=== PATIENT | female | born 1930 | race Caucasian/White ===

== ENCOUNTER 2018-08-29 16:57 | Inpatient (IN) | payer OTHER, MEDICARE ==
[~2018-08-29] VITALS: Ht 152.4 cm; Wt 58.6 kg
--- NOTE | ~2018-08-29 | HC ---
[facility] [place] [address] CONSULTATION Name: RAHEEL DAIGLE Kenya Room #: 226-P [facility] IN .R.#: [id number] Admission: 08/29/18 Attend Phys: Richmond De Anda MD Discharge: 09/01/18 Date of : [birth year] Report #: [id number] THIS REPORT FOR: //name// CC: Richmond VERAS REASON FOR CONSULTATION: End-stage renal disease. HISTORY OF PRESENT ILLNESS: This is an 88-year-old who had some issues with left hip pain that started on Thursday. She was unable to manage her pain and presented for the emergency room for further evaluation and management. She was in a sitting position and tried to stand up and had a little twist on her left lower extremity. Pivoting on her left foot and felt a pop after that. She presented to the emergency room where she was found to have a broken left femur. She was admitted for further evaluation and management. No repeated falls. Last fall was about a year ago. She is completely asymptomatic otherwise. She is maintained on hemodialysis every Thursday, Thursday and Thursday. I am being consulted to manage her end-stage renal disease. ALLERGIES: ALLOPURINOL, HYDROCODONE, TRAMADOL, CAPTOPRIL. PAST MEDICAL HISTORY: 1. Status post lung surgery. 2. Colon resection. 3. End-stage renal disease with left AV fistula. 4. Status post aortic valve replacement. 5. Cataract surgery. 6. Remote history of peritoneal dialysis catheter insertion and removal. MEDICATIONS: 1. Diltiazem. 2. Ibuprofen. 3. Sensipar. 4. Renvela. 5. Aspirin. 6. Heparin. REVIEW OF SYSTEMS: GENERAL: No fever or chills. CARDIOVASCULAR: No chest pain, but significant dyspnea on exertion. PULMONARY: No cough or hemoptysis. GASTROINTESTINAL: No nausea or vomiting. GENITOURINARY: She is anuric. MUSCULOSKELETAL: As per the history of present illness. NEUROLOGICAL: No seizure activities. PHYSICAL EXAMINATION: [facility] [address] [place] [address] CONSULTATION Name: RAHEEL DAIGLE Room #: 226-[facility].#: [id number] Admission: 08/29/18 Attend Phys: Richmond De Anda MD Discharge: 09/01/18 Date of : [birth year] Report #: [id number] GENERAL: She is alert, oriented, in no apparent distress. VITAL SIGNS: Temperature 37.2, blood pressure 134/43. HEAD AND NECK: No jugular venous distention, no bruit, no thyromegaly. CHEST: Dilated chest vein kim, minimal crackles. CARDIOVASCULAR: Systolic murmur present over the aortic valve area. ABDOMEN: Soft, nontender. LOWER EXTREMITIES: Trace edema. Left lower extremity is externally rotated and tender around the hip area. LABORATORY DATA: Reviewed. Hemoglobin 9.3, platelets 77. Chemistry from today revealed potassium of 6.1, BUN of 60 and creatinine of 6.9. Proximal hip x-ray reviewed and this was consistent with a fracture. ASSESSMENT, IMPRESSION AND PLAN: 1. End-stage renal disease. 2. Left femur. 3. Aortic stenosis. 4. Hyperkalemia. We will arrange for the patient to have full dialysis treatment today. She is not okay to proceed with the planned orthopedic surgery today given her hyperkalemia. We will need cardiac clearance regarding her aortic stenosis. <ELECTRONICALLY SIGNED> By: Adan Costello MD 09/03/1820 39 Adan Costello MD /nt
--- NOTE | ~2018-08-29 | EKG ---
[address] [place] [address] ELECTROCARDIOGRAM REPORT Name: RAHEEL DAIGLE Room #: 420-P ADM IN M.R.#: [id number] Admission: 08/29/18 Attend Phys: Richmond De Anda MD Discharge: Date of : [birth year] Report #: [id number] THIS REPORT FOR: //name// [facility] ED Test Date: 2018-08-29 Test Time: 18:19:46 Pat Name: RAHEEL DAIGLE Department: Room: 420 Gender: F Performance Improvement Specialist: neil : 1930 Requested By: Jania Duncan Order Number: [id number] MD: Yogi Arevalo Measurements Intervals [place] Rate: 66 P: -31 MA: 219 QRS: 8 QRSD: 140 T: -18 QT: 446 QTc: 468 Interpretive Statements Sinus rhythm Atrial premature complex Borderline prolonged MA interval Right bundle branch block Compared to ECG 05/09/2013 14:29:47 Atrial premature complex(es) now present Electronically Signed On 08-30-2018 8:08:45 EDITOR NEWS by Yogi Arevalo [email or web address] <ELECTRONICALLY SIGNED> By: Yogi Arevalo MD, [facility] 08/30/18807 18 18 Yogi Arevalo MD, [facility] /EPI
--- NOTE | ~2018-08-29 | HC ---
[facility] [place] [address] CONSULTATION Name: RAHEEL DAIGLE Room #: 420-P [facility] IN ..#: [id number] Admission: 08/29/18 Attend Phys: Richmond De Anda MD Discharge: Date of : [birth year] Report #: [id number] THIS REPORT FOR: //name// CC: Richmond VERAS DATE OF SERVICE: 08/30/2018 HISTORY OF PRESENT ILLNESS: The patient is an 88-year-old white female with end-stage renal disease, dialysis patient who had the onset of left hip pain with inability to bear weight. She is noted to have a left proximal femur fracture. She is to be cleared by Cardiology and she is to have Orthopedics evaluate her regarding potential surgical intervention. We are seeing her in Rehabilitation Medicine consultation. PAST MEDICAL HISTORY: Includes end-stage renal disease for which she has been on hemodialysis. She has a history of lung removal in 1973, colon resection in 2010, heart valve replacement in 2011, degenerative arthritis. HABITS: No history of tobacco or alcohol abuse. ALLERGIES: ALLOPURINOL, CAPTOPRIL AND TRAMADOL WELL HYDROCODONE, FROM VICODIN CAUSING NAUSEA AND VOMITING. SOCIAL HISTORY: Lives with her , house 2 steps in. Premorbidly utilized a cane versus a walker. He would drive her back and forth to dialysis. REVIEW OF SYSTEMS: Did not offer any current complaints of chest pain, shortness of breath, or abdominal discomfort. PHYSICAL EXAMINATION: GENERAL: An 88-year-old slender white female, in no obvious distress. She is pleasant, alert. VITAL SIGNS: Last recorded temperature 99, pulse 71, respirations 16, blood pressure 1134/43. HEENT: Appeared to be benign. NEUROLOGIC: Cranial nerves grossly intact. Facies are symmetric. Functional range of motion of both upper extremities. Strength is grade 4- to 3+/5. DTRs are trace to 1. Lower extremities, she has discomfort moving her left proximal lower extremity as expected. Has distal movement of the left lower extremity with strength, probably a grade 4-/5, right lower extremity functional range of motion with strength, probably a grade 4-/5. Tone appeared to be intact. ASSESSMENT: An 88-year-old white female with the following problem list: 1. Left proximal femur fracture, being evaluated. 2. End-stage renal disease, on hemodialysis. [address] [address] CONSULTATION Name: RAHEEL DAIGLE [place] Room #: 420-P [facility] IN .R.#: [id number] Admission: 08/29/18 Attend Phys: Richmond De Anda MD Discharge: Date of : [birth year] Report #: [id number] 3. Prior history of heart valve replacement. 4. Documentation of lung removal in 1973. 5. Colon resection. 6. Diabetes mellitus. 7. Hypertension. PLAN: Orthopedics to evaluate. We will be assessing her rehabilitation needs as she further medically stabilizes. We will be glad to follow along with you. By: 1244 0045 Jaiden Aparicio MD /SHERLEY
--- NOTE | ~2018-08-29 | O ---
[address] [address] OPERATIVE REPORT Name: RAHEEL DAIGLE Room #: 420-P [facility] IN M.R.#: [id number] Admission: 08/29/18 Attend Phys: Richmond De Anda MD Discharge: Date of : [birth year]/14/[birth year] Report #: [id number] THIS REPORT FOR: //name// CC: Richmond VERAS DATE OF SERVICE: 08/30/2018 SERVICE: Orthopedics. FACILITY: [facility]. SURGEON: Damian Martin MD. ELECTRONIC REPAIR TROUBLESHOOTER: Heaven Hernandez NP. INDICATION FOR ELECTRONIC REPAIR TROUBLESHOOTER: Extremity position, assistance with dislocation, reduction and extremity management for the reconstruction. PREOPERATIVE DIAGNOSES: 1. Displaced left femoral neck fracture. 2. Multiple comorbidities including cardiac, pulmonary and renal disease with end-stage renal disease, on hemodialysis. 3. Osteoporosis. POSTOPERATIVE DIAGNOSES: 1. Displaced left femoral neck fracture. 2. Multiple comorbidities including cardiac, pulmonary and renal disease with end-stage renal disease, on hemodialysis. 3. Osteoporosis. PROCEDURE: Cemented left hip hemiarthroplasty. COMPLICATIONS: None. DRAINS: None. SPECIMENS: None. ESTIMATED BLOOD LOSS: 200 mL. FINDINGS: 1. [employer] size 13 Synergy cemented stem with +4 liner and a 42-mm cobalt head. 2. Intraoperative x-ray confirmed appropriate positioning of the trial implant and broach. [address] [address] OPERATIVE REPORT Name: RAHEEL DAIGLE Room #: 420-P [facility] IN [facility]#: [id number] Admission: 08/29/18 Attend Phys: Richmond De Anda MD Discharge: Date of : [birth year] Report #: [id number] HISTORY: The patient is an 88-year-old female with multiple medical issues who sustained a left hip fracture. She was admitted on 08/29/2018. Orthopedics was consulted the morning of 08/30/2018 for her left proximal femur fracture. Decision was made to proceed with surgical treatment after she had been optimized from a general medical standpoint after completing hemodialysis on Thursday. Risks, benefits, alternatives, and indication for surgery discussed with her and her family and their questions were answered and they gave full informed consent. The risks include but not limited to pain, bleeding, infection, injury to nerves or blood vessels, malunion, refracture, need for further surgery including revision as well as complications related to anesthesia such as stroke, heart attack, pulmonary complications, thromboembolic disease and . Despite these risks, they wished to proceed. PROCEDURE IN DETAIL: After left lower extremity was correctly identified in the preoperative holding area as operative extremity, the patient was taken to the operating room where general endotracheal anesthesia was induced without complication. She was turned into the lateral decubitus position with the left side at the right side up, padded appropriately and prophylactic antibiotics were administered at appropriate time. Left leg was prepped and draped in standard sterile fashion. Time-out procedure was performed. Standard posterior approach was made to the left hip. Incision was made. Dissection was taken down through the IT band and with a splitting approach, the gluteus musculature and the piriformis was identified, was tagged and reflected. The gluteus musculature was reflected off the dorsal side of the capsule and then, the capsule was then incised with a blade in a U-shaped fashion off of the femur. Hemostasis was achieved throughout the exposure. The labrum was protected during the capsular reflection. This was a basicervical femoral neck fracture that was low enough that no additional femoral cut was required. The femur was retracted out of the way and then, the femoral head and neck were removed in a bulk. The pulvinar was resected. The acetabulum was evaluated and found to be healthy in appearance. The femur was then prepared in a typical fashion. The entry reamer was utilized and then the lateralizing reamer and then, the canal was sequentially reamed and broached up to a size 13 with the [address] We brought x-ray and then confirmed appropriate alignment and positioning of the stem. There was noted to be an anterior cortical fracture that extended down about 2 cm. This was not circumferential. It was not a calcar fracture. It was one that was stable by splinting passed it and cementing the implant. The proximal femoral trial was placed and the hip was checked for length and stability in extension external rotation, position of sleep in the 90-90 internal rotation position. After selecting the final implant, the proximal femur was prepared and then, the final implant was cemented into position. It was held securely until the cement had cured and was [facility] [address] [place] [address] OPERATIVE REPORT Name: RAHEEL DAIGLE Room #: 420-P [facility] IN M.REmily#: [id number] Admission: 08/29/18 Attend Phys: Richmond De Anda MD Discharge: Date of : 02/14/[birth year] Report #: [id number] found to be quite stable. The trunnion was cleaned. The trial head and liner were again utilized to confirm that the appropriate sized implant had been selected and then, the 42-mm head was then impacted into position. The hip was reduced. The hip was again confirmed to be stable. Note that the acetabulum was thoroughly lavaged as was the trunnion prior to reduction of the hip. After reduction was performed, 0.5 gram of vancomycin powder was placed deep to the capsule. Then, the capsule was repaired to the posterior aspect of the femur with #2 FiberWire in a typical fashion. The piriformis was repaired as well. After the deep layer, the remaining 0.5 gram of vancomycin powder was placed over this and then, the IT band layer was closed with 0 Vicryl suture in [id number] interrupted fashion. The fat layer was closed with 0 Vicryl suture. Then, the skin was closed with 2-0 Vicryl followed by skin jason. A sterile dressing was applied. The patient was awakened from anesthesia and taken to the recovery room in stable condition. There were no complications. All counts were recorded as correct. <ELECTRONICALLY SIGNED> By: Damian Martin MD 08/31/18 1045 0724 0952 Damian Martin MD /nt
[~2018-08-29 16:57] MED LIST: ALEVE220 M1 PO; ALIGN4 MG PO; ARANESP 6060 MCG/0.1 SC; ASPIRIN EC81 M1 PO; BACTROBAN NASAL1 GM NASAL; CALCITRIOL0.5 MCG PO; CIPROFLOXACIN500 M3 PO; DILTIAZEM ER240 M1 PO; DOCUSATE SODIU100 MG PO; EPOGEN2000 UNIT/ SQ; FIBER0.52 GM PO; FISH OIL 1,001000 M1 PO; FOSRENOL500 MG PO; HECTOROL2 MCG/1 ML IV; HEPARIN SO1000 UNIT2; HYDROCODON-ACE1 EAC7 PO; IRON INFUSION IV; LIPITOR20 MG PO; MIRALAX255 GM PO; MULTIVITAMINS PO; NEURONTIN 300300 M1 PO; NORCO 5-325 TA1 EACH PO; PHISOHEX148 ML TOP; RENAL SOFTGEL1 MG; RENAL SOFTGEL1 MG PO; RENVELA800 MG PO; SENOKOT-S1 TA1 PO; SENSIPAR 30 MG30 M1 PO; STOOL SOFTENER240 MG PO; TOPROL XL25 MG PO; VANCOMYCIN1 GM/2502 IV; [UNRECOGNIZED DRUG - OTHER] PO; [UNRECOGNIZED DRUG - OTHER] PO
[2018-08-29 17:00] VITALS: BP 104/59
[2018-08-29] MEDS ORDERED: CARDIZEM CD120 MG PO (17:57)
[2018-08-29] MEDS ORDERED: IBUPROFEN 200200 M1 PO (17:57)
[2018-08-29] MEDS ORDERED: MELATONIN1 MG PO (17:58)
[2018-08-29] MEDS ORDERED: UNICOMPLEX M TA1 TA1 PO (17:59)
[2018-08-29] MEDS ORDERED: PROBIOTIC1 EAC1 PO (17:59)
[2018-08-29] MEDS ORDERED: MIRALAX17 GM PO (18:00)
[2018-08-29] MEDS ORDERED: CLARITIN10 MG PO (18:00)
[2018-08-29 18:35] VITALS: BP 90/57
[2018-08-29 18:37] VITALS: BP 90/57
[2018-08-29 18:42] LABS: HEMATOCRIT 32.3 % (37.0-47.0); HEMOGLOBIN 10.9 gm/dL (12.0-15.0); MCH 30.5 pg (26.0-34.0); MCHC 33.8 g/dL (28.0-37.0); MCV 90.2 fL (80.0-100.0); RBC 3.58 mil/uL (4.20-5.00); RDW 17.6 % (10.5-14.5); WBC 8.1 thou/uL (4.0-11.0)
[2018-08-29 18:45] LABS: CREATININE 6.2 mg/dL (0.6-1.0); POTASSIUM 5.5 mmol/L (3.5-5.1)
[2018-08-29 19:58] VITALS: BP 176/52
[2018-08-29 19:59] VITALS: BP 106/63
[2018-08-30] VITALS (7 sets, daily range): BP systolic 111–175; BP diastolic 43–63
[2018-08-30 06:05] LABS: HEMATOCRIT 27.2 % (37.0-47.0); HEMOGLOBIN 9.3 gm/dL (12.0-15.0); MCH 30.9 pg (26.0-34.0); MCHC 34.1 g/dL (28.0-37.0); MCV 90.6 fL (80.0-100.0); RDW 17.7 % (10.5-14.5); WBC 6.9 thou/uL (4.0-11.0)
[2018-08-30 06:14] LABS: CALCIUM 9.2 mg/dL (8.5-10.1); CREATININE 6.9 mg/dL (0.6-1.0)
[2018-08-30 06:30] LABS: POTASSIUM 6.1 mmol/L (3.5-5.1)
[2018-08-30 16:08] LABS: CALCIUM 9.4 mg/dL (8.5-10.1); CREATININE 2.5 mg/dL (0.6-1.0); MAGNESIUM 1.9 mg/dL (1.8-2.4); POTASSIUM 3.6 mmol/L (3.5-5.1)
[2018-08-31] VITALS (9 sets, daily range): BP systolic 99–126; BP diastolic 27–72
[2018-08-31 06:33] LABS: HEMATOCRIT 22.5 % (37.0-47.0); MCH 29.9 pg (26.0-34.0); MCHC 32.6 g/dL (28.0-37.0); MCV 91.8 fL (80.0-100.0); RBC 2.45 mil/uL (4.20-5.00); WBC 11.3 thou/uL (4.0-11.0)
[2018-08-31 06:35] LABS: HEMOGLOBIN 7.3 gm/dL (12.0-15.0)
[2018-08-31 06:40] LABS: CALCIUM 8.4 mg/dL (8.5-10.1)
[2018-08-31 06:42] LABS: CREATININE 3.7 mg/dL (0.6-1.0); POTASSIUM 4.9 mmol/L (3.5-5.1)
[2018-08-31 12:20] LABS: HEMATOCRIT 22.6 % (37.0-47.0); HEMOGLOBIN 7.5 gm/dL (12.0-15.0)
[2018-08-31 20:45] LABS: HEMATOCRIT 19.2 % (37.0-47.0); HEMOGLOBIN 6.4 gm/dL (12.0-15.0)
[2018-09-01 04:43] LABS: HEMATOCRIT 24.6 % (37.0-47.0); MCH 29.5 pg (26.0-34.0); MCHC 32.6 g/dL (28.0-37.0); MCV 90.7 fL (80.0-100.0); PLATELET COUNT 79 thou/uL (150-400); RBC 2.71 mil/uL (4.20-5.00); RDW 16.8 % (10.5-14.5); WBC 12.9 thou/uL (4.0-11.0)
[2018-09-01 04:58] LABS: CREATININE 5.3 mg/dL (0.6-1.0); POTASSIUM 5.8 mmol/L (3.5-5.1)
[2018-09-01 05:06] LABS: ABSOLUTE NEUTROPHILS 9.9 thou/uL (1.4-8.2)
[2018-09-01 05:07] LABS: ANISOCYTOSIS 1+; PLATELET ESTIMATE DECREASED; POLYCHROMASIA OCCASIONAL
[2018-09-01 08:33] VITALS: BP 90/37
[2018-09-01 13:13] VITALS: BP 100/41
[2018-09-01] MEDS ORDERED: TYLENOL325 MG PO (14:43)
[2018-09-01] MEDS ORDERED: HEPARIN SO5000 UNIT/ SUBQ (14:43)
[2018-09-01] MEDS ORDERED: PROCRIT20000 UNIT IV PUSH (14:43)
[2018-09-01] MEDS ORDERED: TYLENOL EXTRA500 MG PO (14:58)
[2018-09-01 20:00] VITALS: BP 105/29
== END 2018-09-01 21:45 | DRG 469 ==
LOC: ER 16:57 → EROBS 18:12 → 4E 18:12 → SICU 08-31 18:59
PROVIDERS: Emergency Medicine; Hospitalist; Nurse Practitioner Family; Orthopaedic Surgery Sports Medicine
PROC: 5A1D70Z Performance of Urinary Filtration, Intermittent, Less than 6 Hours Per Day (ICD-10-PCS; principal; 2018-08-30)
PROC: 30233N1 Transfusion of Nonautologous Red Blood Cells into Peripheral Vein, Percutaneous Approach (ICD-10-PCS; 2018-08-31)
PROC: 0SRS0J9 Replacement of Left Hip Joint, Femoral Surface with Synthetic Substitute, Cemented, Open Approach (ICD-10-PCS; 2018-08-31)
PROC: 5A1D70Z Performance of Urinary Filtration, Intermittent, Less than 6 Hours Per Day (ICD-10-PCS; 2018-09-01)
DX: S72.002A Fracture of unspecified part of neck of left femur, initial encounter for closed fracture (principal); N18.6 End stage renal disease; I12.0 Hypertensive chronic kidney disease with stage 5 chronic kidney disease or end stage renal disease; I35.0 Nonrheumatic aortic (valve) stenosis; E87.5 Hyperkalemia; E11.22 Type 2 diabetes mellitus with diabetic chronic kidney disease; M62.84 Sarcopenia; E21.3 Hyperparathyroidism, unspecified; I25.10 Atherosclerotic heart disease of native coronary artery without angina pectoris; E78.5 Hyperlipidemia, unspecified; G47.33 Obstructive sleep apnea (adult) (pediatric); E11.42 Type 2 diabetes mellitus with diabetic polyneuropathy; D64.9 Anemia, unspecified; K59.03 Drug induced constipation; X50.1XXA Overexertion from prolonged static or awkward postures, initial encounter; T40.605A Adverse effect of unspecified narcotics, initial encounter; M19.90 Unspecified osteoarthritis, unspecified site; Y93.89 Activity, other specified; Y92.89 Other specified places as the place of occurrence of the external cause; Z85.038 Personal history of other malignant neoplasm of large intestine; Z95.1 Presence of aortocoronary bypass graft; Y99.8 Other external cause status; Z95.2 Presence of prosthetic heart valve; Z99.2 Dependence on renal dialysis; Z79.82 Long term (current) use of aspirin; Z79.899 Other long term (current) drug therapy; Z88.8 Allergy status to other drugs, medicaments and biological substances; Z28.21 Immunization not carried out because of patient refusal
CPT/HCPCS: 10084; 15000; 32100; 50010; 50101; 50149; 50382; 50414; 50939; 51057; 51130; 51225; 51226; 51412; 51771; 53078; 53369; 56524; 56528; 56530; 57095; 57103; 62110; 62900; 70005

== ENCOUNTER 2018-09-01 11:09 | Inpatient (IN) | payer OTHER, MEDICARE ==
[~2018-09-01] VITALS: Ht 152.4 cm; Wt 60.1 kg
--- NOTE | ~2018-09-01 | PLAN ---
[facility] [place] [address] REHAB UNIT PLAN OF CARE Name: RAHEEL DAIGLE Room #: 510-P ADM IN M.R.#: [id number] Admission: 09/01/18 Attend Phys: Jaiden Aparicio MD Discharge: Date of : [birth year]/14/[birth year] Report #: [id number] THIS REPORT FOR: //name// CC: Jaiden PAZNE EDA DATE OF SERVICE: 09/03/2018 PROGRESS NOTE/OVERALL PLAN OF CARE SUBJECTIVE: The patient is seen back today in followup. She is in no distress. Last recorded temperature 99.1, pulse 77, respirations 18, blood pressure 117/52. Left hip is dressed. There is no calf swelling. Transfers are max assist. Gait mod assist up to 5 feet in parallel bars. Lower body dressing has been dependent. She is on subcutaneous heparin as well as receiving aspirin. ASSESSMENT: 1. Left femur fracture, status post hemiarthroplasty 08/30/2018, weightbearing as tolerated. 2. Postoperative acute blood loss anemia. 3. Postoperative hypotension. 4. End-stage renal disease, on hemodialysis. 5. Aortic stenosis with history of valve replacement. 6. Hyperkalemia, resolved. 7. Peripheral neuropathy, premorbid 8. Sarcopenia. 9. Hyperparathyroidism. PLAN: The overall plan of care is based on the preadmission screen, post-admission physician evaluation, and information garnered from therapy assessments. 1. Estimated length of stay is going to be probably at least 10 days to 2 weeks. 2. Medical prognosis is reasonably good. 3. Anticipated interventions include the interdisciplinary acute inpatient rehabilitation program with PT and OT. Speech therapy has been added as well and rehab nursing assisting regarding bowel and bladder issues, medication management, skin care prophylaxis and education. We have the healthcare network pricing consultant physicians involved as well as the interdisciplinary acute inpatient rehabilitation team. 4. Anticipated functional outcomes would be for the patient to become modified independent with transfers, mobility, ADLs, and improvement in cognition, so that she can return back to the home setting. 5. Discharge destination would be back home where she lives with her . 6. Expected therapy by discipline includes PT, OT, and speech with PT and OT 1 to 1-1/2 hours per day and speech 1/2 to 1 hour per day each 5 days a week [address] [address] REHAB UNIT PLAN OF CARE Name: RAHEEL DAIGLE [place] Room #: 510-P [facility] IN .R.#: [id number] Admission: 09/01/18 Attend Phys: Jaiden Aparicio MD Discharge: Date of : 02/14/[birth year] Report #: [id number] throughout the duration of the acute inpatient rehabilitation stay. She is on a low endurance program with her dialysis, so we may spread out the therapies over the 7 days. <ELECTRONICALLY SIGNED> By: Jaiden Aparicio MD 09/17/18 1415 0754 0902 Jaiden Aparicio MD /nt
--- NOTE | ~2018-09-01 | H ---
[facility] [place] [address] HISTORY AND PHYSICAL Name: RAHEEL DAIGLE Room #: 510-P [facility] IN .R.#: [id number] Admission: 09/01/18 Attend Phys: Jaiden Aparicio MD Discharge: Date of : [birth year]/14/[birth year] Report #: [id number] THIS REPORT FOR: //name// CC: Jaiden VERAS DATE OF SERVICE: 09/01/2018 HISTORY OF PRESENT ILLNESS: This is an 88-year-old female who was admitted in the hospital with acute onset of left hip pain, diagnosed with a left proximal femur fracture. She was cleared by Cardiology and underwent a cemented left hip hemiarthroplasty on 08/30/2018. She is weightbearing as tolerated. She does have end-stage renal disease and is on dialysis. She had some postop anemia requiring blood transfusion. She had some postop hypotension requiring further IV fluids. She has also had difficulty with pain control and nausea. Due to these factors and her decline in functional mobility, she has been admitted to the acute inpatient rehabilitation unit for physical and occupational therapies. Today, the patient reports continued pain in her left hip. She is very fatigued. She did not sleep well. She has nausea. She has been taking her pain pills, which worsened her nausea. She did eat a good breakfast. She had a bowel movement last night. She does not make urine. She denies any cough, chest pain or shortness of air. PAST MEDICAL HISTORY: End-stage renal disease, on hemodialysis; history of lung removal in 1973; colon resection in 2010; aortic valve replacement in 2011; degenerative joint disease; hypertension; hyperlipidemia; obstructive sleep apnea; spinal stenosis. HABITS: She is a nonsmoker, nondrinker, no illicit drug use. SOCIAL HISTORY: She lives with her . There are 2 steps to enter the house. Premorbidly utilized a cane for shorter distances and a walker for longer community distances. Her does the driving. She was independent with ADLs. They share the IADL responsibilities. She does have a daughter who is involved. She comes over and does housekeeping for them as well. ALLERGIES: SHE HAS ALLERGIES TO ALLOPURINOL, CAPTOPRIL, TRAMADOL, SENSITIVITY TO HYDROCODONE CAUSING NAUSEA. CURRENT MEDICATIONS: Procrit 6000 units Thursday, Thursday, Thursday IV; Metamucil 12 grams at bedtime; MiraLax 17 grams b.i.d.; Zofran 4 mg dissolved under tongue daily; Tylenol 1000 mg twice a day; Renvela 1600 mg t.i.d.; multivitamin 1 tablet daily; Claritin 10 mg daily; lactobacillus 1 capsule daily; Colace 300 mg daily; fish oil 1000 mg daily; aspirin 81 mg daily; Sensipar 30 mg daily; heparin 5000 units t.i.d.; hydrocodone 1 tablet q.4h. p.r.n.; melatonin 3 mg at bedtime p.r.n.; Tylenol 650 mg q.4h. p.r.n.; senna 8.[address] [address] HISTORY AND PHYSICAL Name: RAHEEL DAIGLE Room #: 510-P [facility] IN .Emily#: [id number] Admission: 09/01/18 Attend Phys: Jaiden Aparicio MD Discharge: Date of : 02/14/[birth year] Report #: [id number] REVIEW OF SYSTEMS: Twelve-point review of systems is negative except as listed in HPI. PHYSICAL EXAMINATION: VITAL SIGNS: Blood pressure 102/41, respirations 15, pulse of 73, temperature 97.7. She is 93% oxygen sat on room air. GENERAL: She is awake, alert. She is oriented x 3. She is forgetful. She is a poor historian. HEENT: Head is normocephalic. Eyes: EOMs are intact. No icterus. ENT: No sinus tenderness. CHEST: Lungs are diminished in the bases. A few inspiratory wheezes. No significant crackles. CARDIAC: She has a murmur. S1 and S2 intact. SKIN: She has multiple bruising to bilateral upper extremities. Very thin, frail skin upper and lower extremities. She has the original left hip postop dressing that has been reinforced due to some drainage. EXTREMITIES: She has functional range of motion in bilateral upper extremities. Strength grossly 3/5. She has no clonus. She has weak decorating instructor strength bilateral lower extremities. She has negative Homans sign. No foot drop. Able to lift right lower extremity and to gravity. Left lower extremity very limited due to pain complaints. She is transferring max assist, multiple attempts to use front wheel walker. She requires cues for hand placement and safety, very fearful of bearing weight on the left lower extremity. She was unable to ambulate. She was dependent, was scooting into her wheelchair, was able to maintain hip precautions. NEUROLOGIC: Cranial nerves 2-12 grossly intact. PSYCHIATRIC: Depressed affect. LABORATORY DATA: From 09/02/2018, sodium 138, potassium 4.2, BUN 26, creatinine 3.0, glucose 106, calcium 8.5. WBC is 12.3, hemoglobin 8.1, hematocrit 24.2, platelets 90. B12 787. ASSESSMENT: 1. Left femur fracture, status post hemiarthroplasty on 08/30/2018, weightbearing as tolerated. 2. Postoperative acute blood loss anemia anticipated. 3. Postoperative hypotension. 4. Nausea. 5. End-stage renal disease, on hemodialysis. 6. Aortic stenosis with history of valve replacement. 7. Hyperkalemia, resolved. 8. Peripheral neuropathy, premorbid. 9. Sarcopenia. 10. Hyperparathyroid. [facility] [place] [address] HISTORY AND PHYSICAL Name: RAHEEL DAIGLE Room #: 510-P ADM IN .R.#: [id number] Admission: 09/01/18 Attend Phys: Jaiden Aparicio MD Discharge: Date of : 02/14/[birth year] Report #: [id number] PLAN: The patient has been admitted to acute inpatient rehabilitation unit for physical and occupational therapies. She is on the low endurance protocol due to her hemodialysis. Her hospital consultants will continue to follow including Nephrology, hospitalist, Geriatrics. We will clarify with Orthopedics on dressing change orders. We will attempt to work on better pain control. She reports nausea with hydrocodone, but will not attempt to try basic Tylenol. We will see how she does. Plan for team conference on Thursday. Please see extensive orders. <ELECTRONICALLY SIGNED> By: SERGIO Silva 09/07/18 1504 1048 1305 SERGIO Silva /nt
--- NOTE | ~2018-09-01 | H ---
[facility] [place] [address] [place] [address] HISTORY AND PHYSICAL Name: RAHEEL DAIGLE Room #: 510-P [facility] IN .R.#: [id number] Admission: 09/01/18 Attend Phys: Jaiden Aparicio MD Discharge: Date of : [birth year]/14/[birth year] Report #: [id number] THIS REPORT FOR: //name// CC: Jaiden VERAS DATE OF SERVICE: 09/02/2018 POST-ADMISSION PHYSICIAN EVALUATION HISTORY OF PRESENT ILLNESS: The patient is an 88-year-old white female with end-stage renal disease, on hemodialysis, who had the onset of left hip pain with inability to bear weight. She was noted to have a left proximal femur fracture. She was cleared by Cardiology and underwent hemiarthroplasty by Dr. Martin on 08/30/2018. She is allowed weightbearing as tolerated. Postoperatively, she did have anemia with a hematocrit drop and needed to be transfused. She is on SCDs with aspirin for DVT prophylaxis. She also is now on subcutaneous heparin. The patient has been admitted for acute in-hospital inpatient rehabilitation. Please see the full admission history and physical from Margaret Gonzáles. This includes past medical history, social history, etc. Please see my prior consult dictation as well. MEDICATIONS: Please see the current medication listing. This includes vitamins, herbals, and supplements. REVIEW OF SYSTEMS: No complaints of chest pain, shortness of breath, or abdominal discomfort. She has pain as expected regarding the left hip. PHYSICAL EXAMINATION: GENERAL: She was in no distress. The patient was seen earlier. VITAL SIGNS: Temperature 97.7, pulse 73, respirations 15, blood pressure is 102/41. CHEST: Sounded clear. CARDIOVASCULAR: Regular rate and rhythm. ABDOMEN: Bowel sounds positive, nontender. EXTREMITIES: Left hip is dressed. No focal calf swelling or clinical evidence of a lower extremity deep venous thrombosis. She has been max assist with transfers. ASSESSMENT AND PLAN: Please see the full history and physical. From a post-admission physician evaluation perspective, there are no relevant changes since the preadmission screening. Please see the above review of prior and current medical and functional conditions and comorbidities. Please see the patient's previous and current functional status. As far as risk of [facility] [address] [place] [address] HISTORY AND PHYSICAL Name: RAHEEL DAIGLE Room #: 510-P ADM IN [facility].#: [id number] Admission: 09/01/18 Attend Phys: Jaiden Aparicio MD Discharge: Date of : 02/14/[birth year] Report #: [id number] complications, there are multiple medical comorbidities that are noted. The initial plan of care involves the interdisciplinary acute inpatient rehabilitation program with the goal of maximizing the patient's functional independence, so that the patient can return back to the home setting. Measurable functional goals would be for her to achieve independence at the walker level with functional mobility and ADLs. Prognosis is reasonably good with estimated length of stay probably at least 10 days to 2 weeks pending progress. Potential barriers would include the patient's multiple medical comorbidities and her decreased functional status. The patient meets diagnostic criteria for an acute in-hospital inpatient rehabilitation stay. She meets medical necessity criteria and we will have the outside sales consultant physicians involved. She does have the tolerance for therapies and has appropriate discharge goals back to the home setting. <ELECTRONICALLY SIGNED> By: Jaiden Aparicio MD 09/17/18 1414 1153 1216 Jaiden Aparicio MD /nt
--- NOTE | ~2018-09-01 | HC ---
[facility] [place] [address] CONSULTATION Name: RAHEEL DAIGLE Room #: 510-P [facility] IN .R.#: [id number] Admission: 09/01/18 Attend Phys: Jaiden Aparicio MD Discharge: Date of : 02/14/[birth year] Report #: [id number] THIS REPORT FOR: //name// CC: Jaiden Aparicio TERESE VERAS DATE OF SERVICE: 09/05/2018 NEUROBEHAVIORAL STATUS EXAM: ATTENDING PHYSICIAN: Jaiden Aparicio MD. SAP BPC ARCHITECT: William Cain, PhD. CLINICAL PRESENTATION: The patient is an 88-year-old female admitted to the rehab unit at [facility] for a comprehensive inpatient rehabilitation program to improve functional mobility, activities of daily living and self-care and mental status secondary to deficits from a hip fracture. The patient sustained a left proximal femur fracture. She underwent a cemented left hip hemiarthroplasty on 08/30/2018 and is weightbearing as tolerated. The patient carries diagnoses that include end-stage renal disease and is on dialysis. She had postop period of anemia and required IV fluids as well to treat postop hypotension. PAST MEDICAL HISTORY: End-stage renal disease, history of lung removal in 1973, colon resection in 2010, aortic valve replacement in 2011, degenerative joint disease, hypertension, hyperlipidemia, obstructive sleep apnea and spinal canal stenosis. A complete description of her medical condition and history along with medications can be found in her medical records. Neuropsychological consultation was requested to provide assistance in the assessment of cognitive and emotional status and to provide recommendations and services. Prior to this most recent medical event, she was living independently in her own home. She reported being independent with all instrumental activities of daily living. and assisting her 90-year-old . The patient is a high school graduate. 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 Her daughter is concerned about her ability to return home to the prior arrangement because of the amount of help that she is likely require. TECHNIQUES UTILIZED: Clinical interview, review of medical records, staff consultation and behavioral observation, mini mental status exam 2 standard version and clock drawing and then, family interview -- daughter. EXAMINATION FINDINGS: The patient was alert and cooperative with the [address] [address] CONSULTATION Name: RAHEEL DAIGLE Room #: 510-P [facility] IN .R.#: [id number] Admission: 09/01/18 Attend Phys: Jaiden Aparicio MD Discharge: Date of : 02/14/30 Report #: [id number] assessment. She accurately described the reason for her hospitalization. There is no evidence of aphasia. Her thoughts are logical and goal oriented. There is no evidence of thought disorder. She does not report auditory or visual hallucinations. The patient appeared to be in much pain. She was fidgety and restless during the assessment with obvious difficulty in finding a comfortable position. Her symptoms also include longstanding difficulty with sleep and decreased appetite. Periods of confusion and disorientation are noted secondary to a narcotic medication. Subjective anxiety and depression are elevated. Her performance on the MMSE 2 brief version was in the mild to moderate range of impairment with a raw score of 12 of 16, which is a T score of 31, percentile rank of 3. She was 3 of 3 for initial registration, 4 of 5 for orientation to time, 5 of [address] and 0 of 3 for immediate recall of 3 items after a brief time delay and distraction. Performance on the MMSE 2 standard version was in the moderate range of impairment with a raw score of 21 and a T score of 29, which is at the second percentile. She was 1 of 5 for serial sevens, 2 of 2 for naming, 1 of 1 for repetition. Auditory comprehension was 3 of 3, she could read and follow single command and write a sentence. The patient had difficulty with copying a simple geometric design. Clock drawing was within normal limits. The patient appears in moderate to severe pain making it more difficult to concentrate on tasks. Additionally, narcotics are described as having had an impact on her level of orientation. This type of presentation suggests a mild cognitive disorder that is likely related to medical etiology and possibly aggravated by current use of pain medicine and severe pain. Anxiety and depression are also noted. DIAGNOSTIC IMPRESSION: Mild neurocognitive disorder, due to medical etiology, without behavior disorder. Unspecified anxiety disorder with depression. RECOMMENDATIONS: I reviewed with her and her daughter a relaxation technique to assist with pain management. Continued encouragement to utilize breathing strategies and distraction along with paceing to assist with pain management. Use of an antidepressant medication to assist in mood and behavior. Remeron may be of benefit at night for sleep as well as assist in stimulation of appetite. Psychiatric consultation may be a benefit to assist in selection of [address] [address] CONSULTATION Name: RAHEEL DAIGLE Room #: 510-P [facility] IN M.R.#: [id number] Admission: 09/01/18 Attend Phys: Jaiden Aparicio MD Discharge: Date of : 02/14/[birth year] Report #: [id number] an antidepressant. The patient will require assistance in medical, financial and nutritional management upon her discharge home. An assisted living environment or at least availability of family to remain in her house will likely be necessary to for her to maintain safety. Thank you very much for allowing me to provide the consultation on this patient. <ELECTRONICALLY SIGNED> By: William Cain, PhD 09/12/18 1851 1329 01 William Cain, PhD /nt
[~2018-09-01 11:09] MED LIST changes: +CARDIZEM CD120 MG PO; +CLARITIN10 MG PO; +IBUPROFEN 200200 M1 PO; +MELATONIN1 MG PO; +MIRALAX17 GM PO; +PROBIOTIC1 EAC1 PO; +UNICOMPLEX M TA1 TA1 PO
[2018-09-01] MEDS ORDERED: PROCRIT20000 UNIT IV PUSH (14:43)
[2018-09-01] MEDS ORDERED: TYLENOL325 MG PO (14:43)
[2018-09-01] MEDS ORDERED: HEPARIN SO5000 UNIT/ SUBQ (14:43)
[2018-09-01] MEDS ORDERED: TYLENOL EXTRA500 MG PO (14:58)
[2018-09-01 23:35] VITALS: BP 104/36
[2018-09-02 06:27] LABS: HEMATOCRIT 24.2 % (37.0-47.0); HEMOGLOBIN 8.1 gm/dL (12.0-15.0); MCH 30.1 pg (26.0-34.0); MCHC 33.5 g/dL (28.0-37.0); MCV 89.8 fL (80.0-100.0); RBC 2.7 mil/uL (4.20-5.00); RDW 16.9 % (10.5-14.5); WBC 12.3 thou/uL (4.0-11.0)
[2018-09-02 06:35] LABS: CALCIUM 8.5 mg/dL (8.5-10.1); POTASSIUM 4.2 mmol/L (3.5-5.1)
[2018-09-02 09:35] VITALS: BP 102/41
[2018-09-02 20:07] VITALS: BP 104/39
[2018-09-02 21:43] VITALS: BP 117/52
[2018-09-03 08:00] VITALS: BP 143/41
[2018-09-03 19:34] VITALS: BP 125/48
[2018-09-04 05:48] LABS: HEMOGLOBIN 6.8 gm/dL (12.0-15.0); MCH 30.6 pg (26.0-34.0); MCHC 34.2 g/dL (28.0-37.0); MCV 89.5 fL (80.0-100.0); PLATELET COUNT 117 thou/uL (150-400); RBC 2.23 mil/uL (4.20-5.00); RDW 17.4 % (10.5-14.5); WBC 8.1 thou/uL (4.0-11.0)
[2018-09-04 05:55] LABS: CALCIUM 7.7 mg/dL (8.5-10.1); POTASSIUM 4.9 mmol/L (3.5-5.1)
[2018-09-04 06:00] LABS: CREATININE 5.3 mg/dL (0.6-1.0)
[2018-09-04 07:08] VITALS: BP 135/44
[2018-09-04 09:13] LABS: ABSOLUTE NEUTROPHILS 5.2 thou/uL (1.4-8.2)
[2018-09-04 09:14] LABS: ANISOCYTOSIS 1+; LARGE PLATELETS SEVERAL
[2018-09-04 12:43] VITALS: BP 120/42; BP 124/49
[2018-09-04 19:35] VITALS: BP 130/46
[2018-09-05 05:58] LABS: HEMATOCRIT 24.9 % (37.0-47.0); HEMOGLOBIN 8.5 gm/dL (12.0-15.0); MCH 30.6 pg (26.0-34.0); MCHC 34.1 g/dL (28.0-37.0); MCV 89.6 fL (80.0-100.0); PLATELET COUNT 125 thou/uL (150-400); RBC 2.78 mil/uL (4.20-5.00); RDW 16.6 % (10.5-14.5); WBC 6.8 thou/uL (4.0-11.0)
[2018-09-05 06:09] LABS: CALCIUM 8.3 mg/dL (8.5-10.1); POTASSIUM 4.1 mmol/L (3.5-5.1)
[2018-09-05 06:10] LABS: CREATININE 3.2 mg/dL (0.6-1.0)
[2018-09-05 08:00] VITALS: BP 140/51
[2018-09-05 09:03] LABS: ABSOLUTE NEUTROPHILS 4.3 thou/uL (1.4-8.2)
[2018-09-05 09:04] LABS: ANISOCYTOSIS 1+; HYPOCHROMASIA SLIGHT; OVALOCYTES FEW; POIKILOCYTOSIS 1+; POLYCHROMASIA SLIGHT
[2018-09-05 09:05] LABS: LARGE PLATELETS FEW
[2018-09-05 19:21] VITALS: BP 142/45
[2018-09-06 07:25] VITALS: BP 126/36
[2018-09-06 19:10] VITALS: BP 167/55
[2018-09-07 08:03] VITALS: BP 166/65
[2018-09-07 19:35] VITALS: BP 125/42
[2018-09-08 08:30] VITALS: BP 131/48
[2018-09-08 20:01] VITALS: BP 132/55
[2018-09-09 18:05] VITALS: BP 118/30
[2018-09-09 19:26] VITALS: BP 152/44
[2018-09-10 05:46] LABS: HEMOGLOBIN 7.8 gm/dL (12.0-15.0); MCH 30.2 pg (26.0-34.0); MCHC 32.4 g/dL (28.0-37.0); MCV 93.2 fL (80.0-100.0); RBC 2.57 mil/uL (4.20-5.00); RDW 17.2 % (10.5-14.5); WBC 7.7 thou/uL (4.0-11.0)
[2018-09-10 09:00] VITALS: BP 135/55
[2018-09-10 20:03] VITALS: BP 132/89
[2018-09-11 08:06] VITALS: BP 145/48
[2018-09-11 19:21] VITALS: BP 110/44
[2018-09-12 07:35] VITALS: BP 146/40
[2018-09-12 21:46] VITALS: BP 150/94
[2018-09-13 07:43] VITALS: BP 99/41
[2018-09-13 20:35] VITALS: BP 152/49
[2018-09-14 18:56] VITALS: BP 148/50
[2018-09-14 20:54] VITALS: BP 107/51
[2018-09-15 08:00] VITALS: BP 169/62
[2018-09-15 19:41] VITALS: BP 157/63
[2018-09-16 08:48] VITALS: BP 151/59
[2018-09-16 19:10] VITALS: BP 146/39
[2018-09-17 05:49] LABS: HEMATOCRIT 24.1 % (37.0-47.0); HEMOGLOBIN 7.8 gm/dL (12.0-15.0); MCHC 32.5 g/dL (28.0-37.0); MCV 95.2 fL (80.0-100.0); PLATELET COUNT 154 thou/uL (150-400); RBC 2.53 mil/uL (4.20-5.00); RDW 20.7 % (10.5-14.5)
[2018-09-17 06:00] LABS: CALCIUM 9.2 mg/dL (8.5-10.1); MAGNESIUM 2.1 mg/dL (1.8-2.4); POTASSIUM 4.8 mmol/L (3.5-5.1)
[2018-09-17 06:33] LABS: ABSOLUTE NEUTROPHILS 2.9 thou/uL (1.4-8.2); PLATELET ESTIMATE NORMAL
[2018-09-17 06:34] LABS: ANISOCYTOSIS 2+; POLYCHROMASIA OCCASIONAL
[2018-09-17 10:16] VITALS: BP 147/57
[2018-09-17 19:05] VITALS: BP 132/47
[2018-09-18 08:04] VITALS: BP 154/110
[2018-09-18 19:35] VITALS: BP 117/36
[2018-09-19 08:03] VITALS: BP 134/48
[2018-09-19 19:23] VITALS: BP 143/50
[2018-09-20 20:53] VITALS: BP 150/49
[2018-09-21 09:43] VITALS: BP 156/67
[2018-09-21 20:00] VITALS: BP 138/49
[2018-09-22] MEDS ORDERED: NORCO 7.5-3251 EACH PO (08:00)
[2018-09-22] MEDS ORDERED: ZANAFLEX4 MG PO (08:01)
[2018-09-22] MEDS ORDERED: LIDOPATCH1 EACH TRANSDERM (08:01)
[2018-09-22] MEDS ORDERED: PROTONIX 20 MG20 M1 PO (08:01)
[2018-09-22 09:29] VITALS: BP 156/52
[2018-09-22] MEDS ORDERED: MELATONIN1 MG PO (10:25)
[2018-09-22] MEDS ORDERED: SENSIPAR 30 MG30 M1 PO (10:25)
[2018-09-22] MEDS ORDERED: VOLTAREN100 GM TOP (10:25)
[2018-09-22] MEDS ORDERED: ALIGN4 MG PO (10:25)
[2018-09-22] MEDS ORDERED: PROCRIT20000 UNIT IV PUSH (10:25)
[2018-09-22] MEDS ORDERED: FISH OIL 1,0001 EAC1 PO (10:25)
[2018-09-22] MEDS ORDERED: FIBER0.52 GM PO (10:25)
[2018-09-22] MEDS ORDERED: DOCUSATE SODIU100 MG PO (10:25)
[2018-09-22] MEDS ORDERED: NEURONTIN 300300 M1 PO (10:25)
[2018-09-22] MEDS ORDERED: CLARITIN10 MG PO (10:25)
[2018-09-22] MEDS ORDERED: PROBIOTIC1 EAC1 PO (10:25)
[2018-09-22] MEDS ORDERED: MIRALAX17 GM PO (10:25)
[2018-09-22] MEDS ORDERED: RENVELA800 MG PO (10:25)
[2018-09-22] MEDS ORDERED: UNICOMPLEX M TA1 TA1 PO (10:25)
[2018-09-22 10:50] VITALS: BP 156/52
== END 2018-09-22 12:51 | disposition home health service (06) | DRG 535 ==
LOC: ENTRNSPT 09-22 12:45 → EDTRNSPTSTS 09-22 12:48
PROVIDERS: Hospitalist; Nurse Practitioner; Nurse Practitioner Family; Physical Medicine & Rehabilitation
PROC: 5A1D70Z Performance of Urinary Filtration, Intermittent, Less than 6 Hours Per Day (ICD-10-PCS; principal; 2018-09-04)
PROC: 5A1D70Z Performance of Urinary Filtration, Intermittent, Less than 6 Hours Per Day (ICD-10-PCS; 2018-09-07)
PROC: 5A1D70Z Performance of Urinary Filtration, Intermittent, Less than 6 Hours Per Day (ICD-10-PCS; 2018-09-08)
PROC: 5A1D70Z Performance of Urinary Filtration, Intermittent, Less than 6 Hours Per Day (ICD-10-PCS; 2018-09-11)
PROC: 5A1D70Z Performance of Urinary Filtration, Intermittent, Less than 6 Hours Per Day (ICD-10-PCS; 2018-09-16)
PROC: 5A1D70Z Performance of Urinary Filtration, Intermittent, Less than 6 Hours Per Day (ICD-10-PCS; 2018-09-18)
PROC: 5A1D70Z Performance of Urinary Filtration, Intermittent, Less than 6 Hours Per Day (ICD-10-PCS; 2018-09-21)
DX: S72.002A Fracture of unspecified part of neck of left femur, initial encounter for closed fracture (principal); N18.6 End stage renal disease; D62 Acute posthemorrhagic anemia; I12.0 Hypertensive chronic kidney disease with stage 5 chronic kidney disease or end stage renal disease; X58.XXXA Exposure to other specified factors, initial encounter; E87.5 Hyperkalemia; D69.6 Thrombocytopenia, unspecified; I35.0 Nonrheumatic aortic (valve) stenosis; Y93.89 Activity, other specified; Y92.89 Other specified places as the place of occurrence of the external cause; Y99.8 Other external cause status; Z99.2 Dependence on renal dialysis; I95.81 Postprocedural hypotension; Z95.2 Presence of prosthetic heart valve; G62.9 Polyneuropathy, unspecified; M62.84 Sarcopenia; E21.3 Hyperparathyroidism, unspecified; G31.84 Mild cognitive impairment of uncertain or unknown etiology; F41.8 Other specified anxiety disorders; Z90.49 Acquired absence of other specified parts of digestive tract; M19.90 Unspecified osteoarthritis, unspecified site; G47.33 Obstructive sleep apnea (adult) (pediatric); Z88.8 Allergy status to other drugs, medicaments and biological substances; R11.0 Nausea; R53.81 Other malaise; D64.9 Anemia, unspecified; K59.00 Constipation, unspecified; M62.838 Other muscle spasm
CPT/HCPCS: 10112; 32100

== ENCOUNTER 2018-12-03 07:29 | Inpatient (IN) | payer OTHER, MEDICARE ==
[~2018-12-03] VITALS: Ht 154.9 cm; Wt 51.8 kg
--- NOTE | ~2018-12-03 | O ---
[facility] [place] [address] OPERATIVE REPORT Name: RAHEEL DAIGLE Room #: 429-P [facility] IN ..#: [id number] Admission: 12/03/18 ������������������ Attend Phys: Lucas Phillip MD Discharge: ������������������ Date of : 02/14/30 Report #: [id number] THIS REPORT FOR: //name// CC: Lucas Phillip FAM unknown TERESE VERAS DATE OF SERVICE: 12/04/2018 PREOPERATIVE DIAGNOSIS: Left femur fracture, periprosthetic, midshaft. POSTOPERATIVE DIAGNOSIS: Left femur fracture, periprosthetic, midshaft. PROCEDURE: Open reduction and internal fixation of left femur fracture. SURGEON: Omi Johnson M.D. SUPERVISOR WHIPPED TOPPING: Thelma Hicks. ANESTHESIA: General. ESTIMATED BLOOD LOSS: Minimal. DRAINS: No drains. TOURNIQUET TIME: None. DESCRIPTION OF PROCEDURE: The patient was brought to the operating room where she was placed under general anesthesia. Once under adequate general anesthesia, she was placed on the operative table. The patient's left lower extremity was then prepped and draped in a sterile manner. A longitudinal incision approximately 18 cm in length was made along the lateral aspect of the femur. This was dissected down through the soft tissue to the femoral fracture. Any hematoma was evacuated from the fracture site. The fracture was reduced with a large fragment femoral plate placed laterally. Subsequent fixation both proximal and distal to the fracture site once reduction was achieved, it was achieved with 5 screws distal to the fracture site and placed in locking mode and 4 screws proximal placed in locking mode along with a locking wire, a cable proximally as well. Excellent fixation was achieved. Once complete in satisfactory alignment, the wound was then irrigated copiously and closed with #1 Vicryl in deep fascia, 2-0 Vicryl in subcutaneous tissues and jason used for the skin. Fluoroscopy was used throughout the case to verify the position and alignment of the hardware and fracture to be satisfactory. Wounds were dressed with Xeroform, 4 x 4s, and sterile soft compressive dressing was placed. [address] [address] OPERATIVE REPORT Name: RAHEEL DAIGLE Room #: 429-P [facility] IN .R.#: [id number] Admission: 12/03/18 ������������������ Attend Phys: Lucas Phillip MD Discharge: ������������������ Date of : 02/14/30 Report #: [id number] There were no complications from the procedure. The patient tolerated the procedure well and went to the recovery room without incident. ��������������������������������������������� ���������������������������������������� By: ��������������������������������������������� 1630 1704 Omi Johnson MD /nt
[~2018-12-03 07:29] MED LIST changes: +FISH OIL 1,0001 EAC1 PO; +HEPARIN SO5000 UNIT/ SUBQ; +LIDOPATCH1 EACH TRANSDERM; +NORCO 7.5-3251 EACH PO; +PROCRIT20000 UNIT IV PUSH; +PROTONIX 20 MG20 M1 PO; +TYLENOL EXTRA500 MG PO; +TYLENOL325 MG PO; +VOLTAREN100 GM TOP; +ZANAFLEX4 MG PO
--- NOTE | 2018-12-03 12:53 | NUR ---
chart review, pt dir admit from [facility] in [facility]. pt was dc from acute 5n rehab in aug 2018, when dc she went to stay with her daughter up here, had [facility] hh and went to [facility] prior to going back home with her . noted cheryl on o2 per de. she a & o x 3, able to make her needs know. did not come up rt winter weather. cheryl and live in [place] and she goes to dialysis 3 x week in [facility] in [facility]. intro to cm and dcp. pt and daughter reported " did not fall, got my leg twisted under bed when trying to get into bed. have walker, and shower chair. no home o2 or hh at pt home, only had hh while recovering at her daughter in [place] after dc from acute 5n rehab. going to or"/cheryl, and daughter. will cont following as needed for dc needs.
[2018-12-03 12:54] LABS: HEMATOCRIT 21.2 % (37.0-47.0); HEMOGLOBIN 7.3 gm/dL (12.0-15.0); MCH 33.2 pg (26.0-34.0); MCHC 34.2 g/dL (28.0-37.0); MCV 96.9 fL (80.0-100.0); RBC 2.19 mil/uL (4.20-5.00); RDW 19.4 % (10.5-14.5); WBC 8.8 thou/uL (4.0-11.0)
[2018-12-03 13:03] LABS: CALCIUM 8.9 mg/dL (8.5-10.1); CREATININE 4.5 mg/dL (0.6-1.0); MAGNESIUM 2.2 mg/dL (1.8-2.4); POTASSIUM 4.4 mmol/L (3.5-5.1)
[2018-12-03 13:07] LABS: APTT 30.1 Seconds (24.5-32.8); INR 1.1; PROTIME 11.6 Seconds (9.3-11.4)
[2018-12-03 14:20] LABS: LARGE PLATELETS SEVERAL
[2018-12-03 14:21] LABS: PLATELET COUNT 129 thou/uL (150-400)
[2018-12-03 15:22] VITALS: BP 160/41
--- NOTE | 2018-12-03 16:48 | NUR ---
PT ARRIVED DIRECT FROM [facility]10 WITH A FEMUR FX. PT A/OX4, PAIN MANAGED WITH MEDICATIONS, SURGERY PLANS TOMORROW AFTERNOON WITH DR WILKINS. DIALYSIS TODAY. RENAL DIET AND NPO AT MIDNIGHT. FALL PRECAUTIONS IN PLACE. FAMILY BEDSIDE. ADMISSION ASSESMENT AND HISTORY COMPLETED. CALL LIGHT IN REACH.
[2018-12-03 20:00] VITALS: BP 140/49
[2018-12-04 04:00] VITALS: BP 136/38
[2018-12-04 05:18] LABS: HEMATOCRIT 21.1 % (37.0-47.0); HEMOGLOBIN 7.3 gm/dL (12.0-15.0); MCH 33.3 pg (26.0-34.0); MCHC 34.6 g/dL (28.0-37.0); MCV 96.2 fL (80.0-100.0); RBC 2.2 mil/uL (4.20-5.00); RDW 18.9 % (10.5-14.5); WBC 7.6 thou/uL (4.0-11.0)
[2018-12-04 05:26] LABS: ALBUMIN 3.1 g/dL (3.4-5.0); CALCIUM 8.9 mg/dL (8.5-10.1); POTASSIUM 3.9 mmol/L (3.5-5.1)
[2018-12-04 05:34] LABS: CREATININE 2.5 mg/dL (0.6-1.0)
[2018-12-04 07:43] VITALS: BP 133/46
[2018-12-04 11:20] VITALS: BP 165/98
--- NOTE | 2018-12-04 12:37 | NUR ---
ORDER REC'D FOR OT. PLANNED SURGERY TODAY FOR FEMUR FX. WILL AWAIT ORDERS AFTER SX.
--- NOTE | 2018-12-04 16:19 | NUR ---
A/OX4, PAIN MANAGED WITH MEDICATION, 2L NC DUE TO DESATURATION. BATH GIVE THIS MORNING FOR SURGERY. REPOSITIONED TOLERATED. DAUGHTER BEDSIDE. LEFT FOE PRE-OP AT 1300. PATIENT WILL TRANSFER TO [facility] POST-OP. REPORTED OFF TO NURSE RECIEVING PT. NOTIFIED POST-OP OF TRANSFER. FAMILY REMOVED PERSONAL BELONGINGS FROM ROOM.
[2018-12-04 17:22] LABS: HEMATOCRIT 24.1 % (37.0-47.0); HEMOGLOBIN 7.9 gm/dL (12.0-15.0)
[2018-12-04 17:55] VITALS: BP 128/46
--- NOTE | 2018-12-04 17:56 | NUR ---
PT ARRIVED FROM POST OP AT THIS TIME. PT ALERT XS 4 NO PAIN STATES JUST TIRED. V.S= 97.6 18 72 128/46 O2 SAT = 95% RA. ICE PACK TO LEFT LOWER EXTREMITY. FLUIDS STARTED ORDERED. PT TO HAVE CLEAR LIQUID DIET MENU IN ROOM.
[2018-12-04 19:44] VITALS: BP 115/34
--- NOTE | 2018-12-04 23:03 | NUR ---
ASSESSMENT COMPLETED. PT IS ALERT AND ORIENTED.PLEASANT. DENIES PAIN. LLE WITH IMMOBILIZER IN PLACE. DRSG C/D/I. ICE ARNALDO IN PLACE. GOOD SENSATION, MOVEMENT AND CIRCULTION NOTED TO LEFT FOOT/TOES.AFEBRILE. CALL LIGHT WITHIN REACH.
[2018-12-05] VITALS (7 sets, daily range): BP systolic 103–129; BP diastolic 19–98
[2018-12-05 05:31] LABS: HEMATOCRIT 18.5 % (37.0-47.0); HEMOGLOBIN 6.4 gm/dL (12.0-15.0)
[2018-12-05 05:34] LABS: POTASSIUM 5.1 mmol/L (3.5-5.1)
--- NOTE | 2018-12-05 08:27 | NUR ---
CRITICAL HGB 6.4 HCT 18.5, ORDERS RECEIVED TO TRANSFUSE 1 UNIT OF PRBC. STARTED AT 07:22. NO REACTION NOTED. REPORT GIVEN TO DAY SHIFT RN TO COMPLETE THE BLOOD TRANSFUSION.
--- NOTE | 2018-12-05 19:22 | NUR ---
ASSUMED PT CARE AT 0700H. PT A&O X4. PT STATES PAIN AT L HIP AND BACK PAIN. PT TOLERATES MEDS AND MEALS. PT HAD CRITICAL LAB FOURDRINIER WIRE WEAVER. PT INFUSING BLOOD AND VITALS TAKEN. PT LAB RESULTS CURRENLTY WAITING. PT HAD PHYSICAL THERAPY. PT STOOD AT BEDSIDE. PT HIP DRSG C/D/I. PT ON FLUID RESTRICTION 1000L. PT HAD NOT URINE OUTPUT. PT SCHEDULED TO HAVE DIALYSIS TOMORROW. PT CALLS APPROPRIATE. PT CONTINUES TO BE MONITORED FOR SAFETY.
[2018-12-05 19:31] LABS: HEMATOCRIT 21.2 % (37.0-47.0); HEMOGLOBIN 7.2 gm/dL (12.0-15.0)
[2018-12-06 05:35] VITALS: BP 130/38
--- NOTE | 2018-12-06 05:38 | NUR ---
required both IV and PO PRN pain medication for left leg/hip, chronic back pain. applied ice to incisional area, dressing intact. max assist for bed mobillity. turned q2hrs. left leg immobilizer in place. anuric. left upper arm dialysis fistula with bruit, thrill. will have dialysis today. received blood transfusion during previous shift, H&H redrawn, improved. can be anxious at times but responds well to emotional support. i am aware of no BM since admit per patient, last charted BM 12/01. tawny doss CHAPLAIN RESIDENT reviewed med list, resumed appropriate meds. takes Colace, Miralax, requests to be given after dialysis. no abdominal pain, bowel sounds WNL.
--- NOTE | 2018-12-06 08:54 | NUR ---
ASSUMED CARE OF PT AT 0700. ASSESSMENT COMPLETED. A&O,X4, FORGETFUL AT TIMES. C/O CHRONIC LOWER BACK PAIN AND LEFT LEG PAIN, PAIN MEDS GIVEN ORDERED AND PAIN PATCH IN PLACE LOWER BACK. LLL IMMOBILIZER IN PLACE. PULSES +2/+2, NEURO CHECKS INTACT. AM MEDS GIVEN ORDERED, SOME HELD DUE TO DIALYSIS THIS MORNING SEE EMAR. NO INSULIN REQURIED AT BREAKFAST. ROOM AIR, CLEAR LUNGS. MUMMUR NOTED. ACTIVE BOWEL SOUNDS, LBM 2/13. SKIN INTACT. FALL PRECAUTIONS IN PLACE. DAUGHTER AT BEDSIDE EARLIER THIS MORNING. PT IN STABLE CONDITION. WILL CONTINUE TO MONITOR.
[2018-12-06 09:11] VITALS: BP 112/28
--- NOTE | 2018-12-06 11:25 | HC ---
[facility] [place] [address] CONSULTATION Name: RAHEEL DAIGLE Room #: 429-P [facility] IN .R.#: [id number] Admission: 12/03/18 ������������������ Attend Phys: Lucas Phillip MD Discharge: ������������������ Date of : [birth year]/14/[birth year] Report #: [id number] THIS REPORT FOR: //name// CC: Lucas Phillip FAM unknown TERESE VERAS DATE OF SERVICE: 12/03/2018 NEPHROLOGY CONSULTATION REASON FOR CONSULTATION: End-stage renal disease, on dialysis. HISTORY OF PRESENT ILLNESS: The patient is extremely well known to our service with longstanding end-stage renal disease on dialysis, was hospitalized here with a left femur fracture in August 2018. She underwent extensive surgery with a partial hip replacement and was doing okay, back on her feet to some degree until this morning when she twisted getting into bed and she for re-fractured the femur below the prosthesis and has a femur fracture and is readmitted. Otherwise, she has been doing reasonably well. She is a bit weak, but not short-winded and is not having any chest pain. PAST MEDICAL HISTORY: Longstanding difficult hypertension, end-stage renal disease, on dialysis for several years. She had a colovesical fistula, which was repaired secondary to diverticulitis and a bovine aortic valve bioprosthesis and coronary bypass x 1 also several years ago. HOME MEDICATIONS: Include Renvela with meals, tramadol, diltiazem 120 mg daily. SOCIAL HISTORY: No cigarettes or alcohol. REVIEW OF SYSTEMS: GENERAL: She has been reasonably good. EYES: Vision is okay. ENT: Hearing okay, swallows okay. No mouth sores. ENDOCRINE: No diabetes. RESPIRATORY: Denies shortness of breath, pleuritic pain or cough. CARDIAC: No chest pain or angina. GASTROINTESTINAL: No nausea, vomiting, diarrhea or bloody stools. GENITOURINARY: Makes virtually no urine. NEUROLOGIC: Generalized weakness, but no seizure, syncope or stroke. FAMILY HISTORY: No renal disease. PHYSICAL EXAMINATION: GENERAL: This is a chronically ill appearing elderly dialysis patient, looking [facility] [address] [place] [address] CONSULTATION Name: RAHEEL DAIGLE [place] Room #: 429-P [facility] IN M.R.#: [id number] Admission: 12/03/18 ������������������ Attend Phys: Lucas Phillip MD Discharge: ������������������ Date of : [birth year]/14/[birth year] Report #: [id number] possibly older than her stated age of 88. She is awake, alert, giving a reasonably good history. SKIN: Unremarkable. SKELETAL: Well developed, well nourished. HEENT: Extraocular movements are full. Vision intact. Hearing intact. Mucous membranes are moist. Tongue, buccal mucosa benign. NECK: Supple, no carotid bruits. CHEST: Clear to auscultation. HEART: Regular with a 2/6 systolic murmur. ABDOMEN: Soft and nontender. EXTREMITIES: No peripheral edema. Peripheral pulses diminished. LABORATORY DATA: Hemoglobin according to this is only 6.0. Potassium 4, creatinine 4.1, BUN 48. ASSESSMENT AND PLAN: 1. End-stage renal disease, in need of dialysis. I will provide dialysis orders, etc. for this patient. 2. Anemia. She will need some blood transfusions before the surgery. 3. History of aortic valve replacement. 4. Longstanding hypertension. 5. Femur fracture. 6. Recent left hip hemiarthroplasty. ��������������������������������������������� <ELECTRONICALLY SIGNED> ���������������������������������������� By: Giorgio Holley MD ��������������������������������������������� 12/06/18 1125 [id number] Giorgio Holley MD /nt
--- NOTE | 2018-12-06 13:35 | NUR ---
PT LEFT FOR DIALYSIS IN STABLE CONDITION AT 13:30.
[2018-12-06 19:40] VITALS: BP 138/47
--- NOTE | 2018-12-06 19:55 | NUR ---
PT FINISHED DIAYLSIS AT APPROX 18:35 AND RETURNED TO ROOM. PT TEARFUL AND STATING SHE IS IN PAIN, PAIN MEDS GIVEN ORDERED. AT BEDSIDE. ZANDRA FISTULA IN C/D/I DRESSING. NO OTHER CHANGES.
--- NOTE | 2018-12-06 22:10 | NUR ---
ASSESSMENT COMPLETED. AT SHIFT CHANGE, PT WAS C/O BACK PAIN AND THEREAFTER R HAND PAIN. 2 HRS INTO GETTING IV FENTANYL, PT STILL IN EXCRUCIATING PAIN. SPOUSE AND DAUGHTER IN ROOM. PT REPOSITIONED, R HAND ELEVATED, BUT IN NO VAIN. VSS. PT GIVEN PERCOCET. PT INTAKE IS POOR.THEREAFTER PT GIVEN IV FENTANYL, WHEN ASKED ABOUT PAIN, SHE REPORTS NO RELIEF. SHE IS HOWEVER QUIET,WATCHING TV ON AND OFF. WILL TRY REPOSITIONING MUCH POSSIBLE. LLE WITH IMMOBILIZER INTACT. RUE WITH SENSATION INTACT.WILL CONTINUE WITH POC TILL EOS.
[2018-12-07] VITALS (7 sets, daily range): BP systolic 99–137; BP diastolic 29–48
--- NOTE | 2018-12-07 11:56 | NUR ---
ASSUMED CARE OF PT AT 0700. ASSESSMENT COMPLETED. A&O,X4 AND FORGETFUL AT TIMES. AT BEDSIDE. C/O CHRONIC LOWER BACK PAIN AND LEFT LEG PAIN, PAIN MEDS GIVEN ORDERED. LEFT LOWER IMMOBILIZER IN PLACE. X1 ASSIST, NWB LLL. LBM 12/01 - GOAL TO PROMOTE BM. STOOL SOFTENERS, PRUNE JUICE, AND MIRILAX GIVEN ORDERED. SKIN INTACT, REDNESS NOTED IN SACRAL REGION. PT ANURIC DUE TO DIALYSIS. ZANDRA FISTULA, BRUIT AND THRILL NOTED. ACCUCHECKS, NO INSULIN COVERAGE REQUIRED. PT IN STABLE CONDITION. WILL CONTINUE TO MONITOR.
--- NOTE | 2018-12-07 12:41 | NUR ---
S/W PT'S AND CASE DISCUSSED WITH ERNESTINE RAMIREZAB SHINGLER. PT IS CONSIDERING 5N IF ABLE TO TOLERATE THERAPIES AND PAIN IS CONTROLLED. S/W DTR JAY TO DISCUSS TRANSFER TO 5N WELL AND SHE WOULD REALLY LIKE FOR THIS TO OCCUR WHEN PT IS MEDICALLY STABLE.
[2018-12-07 13:58] LABS: WBC 9.3 thou/uL (4.0-11.0)
[2018-12-07 13:59] LABS: MCH 32.3 pg (26.0-34.0); MCHC 34.4 g/dL (28.0-37.0); MCV 93.7 fL (80.0-100.0); RDW 18.1 % (10.5-14.5)
[2018-12-07 14:07] LABS: HEMOGLOBIN 6.5 gm/dL (12.0-15.0)
[2018-12-07 14:08] LABS: HEMATOCRIT 18.8 % (37.0-47.0)
--- NOTE | 2018-12-07 14:10 | NUR ---
CRITICAL LAB RESULTS RECIEVED. HCT 18.8. PHYSICIAN NOTIFIED.
[2018-12-07 14:17] LABS: CALCIUM 8.2 mg/dL (8.5-10.1); CREATININE 3.3 mg/dL (0.6-1.0)
[2018-12-07 14:50] LABS: ABSOLUTE NEUTROPHILS 6.6 thou/uL (1.4-8.2); ANISOCYTOSIS 1+; PLATELET COUNT 96 thou/uL (150-400)
--- NOTE | 2018-12-07 15:04 | NUR ---
I have reviewed and concur with student documentation.
--- NOTE | 2018-12-07 19:44 | NUR ---
ORDERS FOR BLOOD TRANSFUSION DUE TO LOW HCT. BLOOD TRANSFUSION TO BE GIVEN BY [employer] ANDROID DEVELOPER BEFORE MIDNIGHT. NO OTHER CHANGE IN PT CONDITION. VSS.
--- NOTE | 2018-12-07 22:03 | NUR ---
Pt transferred to unit at 2029,oriented to the unit and call light system. VSS.Had a pending order for blood transfusion prior to transfer. Blood received from lad and transfusion started. PIV on RAC infiltrated,another PIV started on RAC 20" with no problems,blood transfusing at this time with no adverse reactions noted. Pt states pain level is tolerable at this time 3/10,encouraged to voice needs as needed. Pt produces no urine,had a small soft BM on the bedpan. Immobilizer in place on Left thigh/hip,CMS intact. AV fistula on LUE with bruit/thrill present. No other concerns voiced at this time,will continue to monitor pt.
--- NOTE | 2018-12-08 01:33 | NUR ---
Blood transfusion completed at 0105 without any adverse reaction noted. Resting quietly eyes closed with no distress noted. VSS. Call light/personal items placed within reach. Medicated with Percocet per EMAR with relief reported. Will continue to monitor pt.
[2018-12-08 06:27] LABS: HEMATOCRIT 22.8 % (37.0-47.0); HEMOGLOBIN 7.7 gm/dL (12.0-15.0); MCH 30.3 pg (26.0-34.0); MCHC 33.7 g/dL (28.0-37.0); RBC 2.53 mil/uL (4.20-5.00); RDW 19.7 % (10.5-14.5); WBC 7.7 thou/uL (4.0-11.0)
[2018-12-08 06:40] LABS: ALBUMIN 2.3 g/dL (3.4-5.0); CALCIUM 8.3 mg/dL (8.5-10.1); MAGNESIUM 2.2 mg/dL (1.8-2.4); PHOSPHORUS 3.5 mg/dL (2.5-4.9); POTASSIUM 4.7 mmol/L (3.5-5.1)
[2018-12-08 08:35] VITALS: BP 100/34
--- NOTE | 2018-12-08 10:30 | NUR ---
5N acute rehab has declined the pt due to dx and endurance. Pt and her spouse updated at bedside and dtr Bridget via phone. They are interested in [facility] as a possible option as well as [facility] as it is a block from her dialysis clinic. Pt's dtr concerned that she is not ready for dc and wants her to stay here in the city. DC is anticipated for tomorrow if medically cleared. Pt is dialyzing today. Marketing Clerk to check bed availability and initiate referrals to both [facility] and the [place] [facility]. Family to discuss further the logistics of being here in the city or back in [place] near their home. PRASAD to eval this afternoon and referral is being faxed to admissions at the SNF. Discussed with the care team.
--- NOTE | 2018-12-08 12:06 | NUR ---
FAXED REFERRAL TO [facility] SPOKE WITH ALTHEA AT FACILITY AND SHE RECEIVED REFERRAL AND WILL HAVE ADM. REVIEW. POSS DC TOMORROW 12/09. DCP TO FOLLOW.
--- NOTE | 2018-12-08 19:08 | NUR ---
ASSUMED PATIENT AND CARES AT 0715, A&OX4, RECEIVED PRN PAIN MEDICATION PRIOR TO START OF SHIFT, PAIN PARTIALLY RELIEVED, PATIENT HAS CHRONIC BACK PAIN WELL, FLUID RESTRICTION 1500ML, LUE FISTULA + BRUIT/THRILL, RAC INTACT, LLE IMMOBILIZER IN PLACE, NWB LLE, PERSONAL BELONGINGS AND CALL LIGHT IN REACH, WILL CONTINUE TO MONIOR
[2018-12-08 20:07] VITALS: BP 114/42
--- NOTE | 2018-12-09 05:18 | NUR ---
Assumed pt care at 1900.Pt A/OX4. VSS. C/o pain to left thigh/knee,medicated with Fentanyl/Percocet around the clock with relief reported. Pt unable to sleep for a long time,nurse questioned pt what's bothering her and pt did verbalize feeling anxious about dc to a SNF since she hasn't been to one before.1:1 reassurance given to pt and encouraged to get some rest. Pt is anuric,dialyzed yesterday. On a 1500cc/24 hr fluid restriction and adhering to it. LUE fistula in place with bruit/thrill present.Has a RAC saline lock that is patent. Immobilzer to LLE in place,CMS intact. Pt is NWB to LLE,repositioned frequently per request. Resting quietly with eyes closed,no distress noted.Call light/personal items within reach.Will continue to monitor pt.
[2018-12-09 06:29] LABS: HEMATOCRIT 22.4 % (37.0-47.0); HEMOGLOBIN 7.5 gm/dL (12.0-15.0); MCH 30.6 pg (26.0-34.0); MCHC 33.5 g/dL (28.0-37.0); MCV 91.5 fL (80.0-100.0); RBC 2.45 mil/uL (4.20-5.00); RDW 19.8 % (10.5-14.5); WBC 5.8 thou/uL (4.0-11.0)
[2018-12-09 06:38] LABS: CALCIUM 8.1 mg/dL (8.5-10.1); POTASSIUM 4.5 mmol/L (3.5-5.1)
[2018-12-09 06:39] LABS: CREATININE 2.7 mg/dL (0.6-1.0)
[2018-12-09 07:05] VITALS: BP 124/50
--- NOTE | 2018-12-09 10:38 | NUR ---
DISCHARGE PLANNING. CALL PLACED TO [facility] TO CONFIRM TRANSPORTATION TO [facility] AT 1430 HOURS. PER [facility] DISPATCH, OUT OF TOWN TRANSPORTATION HAS NOT BEEN APPROVED AT THIS TIME. A SYSTEM CONSULTANT FROM [facility] WILL BE IN CONTACT WITH CM ONCE APPROVED. CM CONTACT INFORMATION PROVIDED TO DISPATCH. ATTENDING PHYSICIAN CURRENTLY ON UNIT AND WILL COMPLETE DISCHARGE ORDERS. FAMILY AT BEDSIDE, UNIT SW CURRENTLY MEETING WITH THEM AND UPDATED DISCHARGE PLAN AND INFORMATION PROVIDED TO ALL. FOLLOWING TO ASSIST WITH DISCHARGE.
--- NOTE | 2018-12-09 10:46 | NUR ---
SW reviewed chart and spoke with nursing and attending physician. Pt is medically stable for discharge to post-acute today. SW met with pt and spouse at bedside to discuss discharge plan. Pt and spouse state that they would prefer pt to go to [facility] due to location to the dialysis clinic. SW explained that arrangements have been made for pt to go to [facility] as SNF placement was discussed with pt, spouse and dtr yesterday. SW reviewed locations of the two SNFs in [place] with pt's spouse. Pt's spouse confirms that they would prefer [facility], as it is closer to [facility]. Pt's spouse states he will discuss with their dtr, as he and pt want to be closer to the dialysis clinic. urban and regional planner faxed referral to [facility]. Awaiting input at this time. Chart copy ordered. JONATAN is following to assist as needed with discharge planning.
--- NOTE | 2018-12-09 13:18 | NUR ---
ASSUMED CARE OF PATIENT AT 0715, ALERT AND ORIENTED X 4. PATIENT UP WITH ASSIST X 2 WITH GAIT BELT AND WALKER. PATIENT C/O PAIN WITH LEFT LEG/HIP AREA. PATIENT HAS RECEIVED OXYCODONE 1 TABLET AND FENTANYL IV SINCE START OF SHIFT. PATIENT HAS BEEN UP IN RECLINER SINCE THIS AM. PAIENT HAS RIGHT FOREARM IV IN PLACE, FLUSHED WITH NS AND REMAINS PATENT. PATIENT HAS REDNESS TO BOTTOM, BARRIER CREAM APPLIED THIS AM. HAS BEEN AT BEDSIDE SINCE THIS AM. PATIENT WILL DISCHARGE TO [facility] AT 1500.
== END 2018-12-09 16:59 | DRG 480 ==
LOC: 4S 07:29 → 4W 11:10 → 4E 11:10 → SICU 12-07 20:30
PROVIDERS: Hospitalist; Internal Medicine; Internal Medicine Nephrology; Nurse Practitioner; Orthopaedic Surgery Foot and Ankle Surgery; Student in an Organized Health Care Education/Training Program; ADMIT Hospitalist
PROC: 5A1D70Z Performance of Urinary Filtration, Intermittent, Less than 6 Hours Per Day (ICD-10-PCS; 2018-12-03)
PROC: 0QS904Z Reposition Left Femoral Shaft with Internal Fixation Device, Open Approach (ICD-10-PCS; principal; 2018-12-04)
PROC: 30233N1 Transfusion of Nonautologous Red Blood Cells into Peripheral Vein, Percutaneous Approach (ICD-10-PCS; 2018-12-04)
PROC: 5A1D70Z Performance of Urinary Filtration, Intermittent, Less than 6 Hours Per Day (ICD-10-PCS; 2018-12-06)
PROC: 5A1D70Z Performance of Urinary Filtration, Intermittent, Less than 6 Hours Per Day (ICD-10-PCS; 2018-12-08)
DX: M97.02XA Periprosthetic fracture around internal prosthetic left hip joint, initial encounter (principal); N18.6 End stage renal disease; D62 Acute posthemorrhagic anemia; I12.0 Hypertensive chronic kidney disease with stage 5 chronic kidney disease or end stage renal disease; G62.9 Polyneuropathy, unspecified; D63.8 Anemia in other chronic diseases classified elsewhere; E03.9 Hypothyroidism, unspecified; M19.90 Unspecified osteoarthritis, unspecified site; D69.6 Thrombocytopenia, unspecified; E11.22 Type 2 diabetes mellitus with diabetic chronic kidney disease; E21.3 Hyperparathyroidism, unspecified; M62.84 Sarcopenia; K59.00 Constipation, unspecified; Z47.89 Encounter for other orthopedic aftercare; Z95.1 Presence of aortocoronary bypass graft; Z95.2 Presence of prosthetic heart valve; Z88.6 Allergy status to analgesic agent; Z88.8 Allergy status to other drugs, medicaments and biological substances; Z90.49 Acquired absence of other specified parts of digestive tract; Z79.82 Long term (current) use of aspirin; Z79.899 Other long term (current) drug therapy; Z99.2 Dependence on renal dialysis
CPT/HCPCS: 10047; 10783; 15002; 32100; 50010; 50011; 50101; 50386; 50417; 51412; 51816; 55430; 56524; 56525; 56667; 62110; 62900; 65090; 70005

== ENCOUNTER 2019-01-01 11:57 | Inpatient (IN) | payer OTHER, MEDICARE ==
[2019-01-01] VITALS (24 sets, daily range): BP systolic 81–140; BP diastolic 30–95
[~2019-01-01] VITALS: Ht 162.6 cm; Wt 56.8 kg
--- NOTE | 2019-01-01 12:27 | NUR ---
WAS TOLD BY THAT PT DOES NOT PRODUCE URINE. UA CANCELLED.
[2019-01-01 12:33] LABS: HEMATOCRIT 24.5 % (37.0-47.0); HEMOGLOBIN 7.9 gm/dL (12.0-15.0); MCHC 32.2 g/dL (28.0-37.0); MCV 99.4 fL (80.0-100.0); RBC 2.47 mil/uL (4.20-5.00); WBC 24.6 thou/uL (4.0-11.0)
[2019-01-01 12:44] LABS: CREATININE 4.1 mg/dL (0.6-1.0); POTASSIUM 4.8 mmol/L (3.5-5.1)
[2019-01-01 12:56] LABS: ABSOLUTE NEUTROPHILS 21.6 thou/uL (1.4-8.2)
[2019-01-01 12:57] LABS: ANISOCYTOSIS 2+; POLYCHROMASIA OCCASIONAL
[2019-01-01 12:59] LABS: LARGE PLATELETS OCCASIONAL; PLATELET COUNT 64 thou/uL (150-400)
--- NOTE | 2019-01-01 13:05 | NUR ---
1 AM OF D50 THROUGH RIGHT AC AT THIS TIME
--- NOTE | 2019-01-01 13:13 | NUR ---
FINGER STICK PREFORMED
[2019-01-01] MEDS ORDERED: ACIDOPHILUS1 EAC4 PO (13:16)
[2019-01-01] MEDS ORDERED: NEURONTIN 300300 M1 PO (13:17)
[2019-01-01] MEDS ORDERED: CARDIZEM CD120 MG PO (13:17)
[2019-01-01] MEDS ORDERED: RENAL-VITE TAB0.8 MG PO (13:17)
[2019-01-01] MEDS ORDERED: PERCOCET PO (13:18)
[2019-01-01] MEDS ORDERED: TYLENOL325 MG PO (13:18)
--- NOTE | 2019-01-01 15:16 | NUR ---
D50 IN RIGHT AC AT THIS TIME
[2019-01-01 16:25] LABS: APTT 44.8 Seconds (24.5-32.8); INR 2.6; PROTIME 27.4 Seconds (9.3-11.4)
--- NOTE | 2019-01-01 17:53 | NUR ---
CONSULTED TO PLACE A LINE FOR A PATIENT ADMITTING TO ICU. ORDER AND CONSENT NOTED. THE PROCEDURE WELL BENIFITS AND RISKS FOR INFECTION DISCUSSED. THE RIGHT INTERNAL JUGULAR WAS WIDLEY PATENT. A #6F TRIPLE LUMEN POWER JACC CENTRAL LINE WAS PLACED PER POLICY AFTER A BEDSIDE TIMEOUT WAS COMPLETE. LINE 25CM AND ADVANCED TO 17CM . A STAT CHEST XRAY WAS ORDERED FOR CONFIRMATION
[2019-01-01 18:14] LABS: CALCIUM 8.2 mg/dL (8.5-10.1); CREATININE 3.9 mg/dL (0.6-1.0); POTASSIUM 4.6 mmol/L (3.5-5.1)
--- NOTE | 2019-01-01 19:31 | NUR ---
[age]AR OLD FEMALE ADMITTED TO ICU ROOM 240 UNDER THE CARE OF DR LEIGH. PT WAS TRANSFERRED FROM [facility] DUE TO ELEVATED WBC AND POSITIVE BLLOD CLUTURES. PT ALERT TO SELF ONLY. BP LOW LEVOPHED STARTED ORDERED. BEAR HUGGER IN PLACE FOR LOW TEMP. STERI STRIPS TO LEFT HIP AND LEFT HAND. PT DENIES ANY PAIN AT THIS TIME. DAUGHTER AT BEDSIDE DDURING ADMISSION ASSESSMENT. WILL CONTINUE TO MONITOR.
--- NOTE | 2019-01-01 23:57 | NUR ---
PT PULLED OUT RIJ triple lumen line. Pressure held to site x15 minutes and small pressure drsg applied to site. Two peripheral IV's started per charge nurse, #22 DENISE and #22 RFA. Pt now off bear hugger, maintaining own temp. On room air since 2199 with sat 93-99%. Levophed remains at 8 mcg/min
[2019-01-02] VITALS (58 sets, daily range): BP systolic 71–131; BP diastolic 25–76
[2019-01-02 05:11] LABS: MCH 31.3 pg (26.0-34.0)
[2019-01-02 05:12] LABS: MCHC 32.6 g/dL (28.0-37.0); MCV 96.2 fL (80.0-100.0); RBC 2.05 mil/uL (4.20-5.00); RDW 19.8 % (10.5-14.5); WBC 21.1 thou/uL (4.0-11.0)
[2019-01-02 05:20] LABS: ALBUMIN 2.6 g/dL (3.4-5.0); CALCIUM 8.2 mg/dL (8.5-10.1); CREATININE 4.1 mg/dL (0.6-1.0); PHOSPHORUS 4.8 mg/dL (2.5-4.9); POTASSIUM 4.9 mmol/L (3.5-5.1)
[2019-01-02 05:28] LABS: HEMATOCRIT 19.7 % (37.0-47.0); HEMOGLOBIN 6.4 gm/dL (12.0-15.0)
--- NOTE | 2019-01-02 06:10 | NUR ---
END OF SHIFT SUMMARY: Pt not progressing toward discharge goals at this time. Initially able to titrate Levophed from 8 mcg/min to 3 mcg/min but at 0400 pt began to drop O2 sat and MAP <60. O2 now at 5 L per canula and Levophed back up to 8 mcg/min. Pt's hgb low at 6.4. Nurse practioner notified and waiting for Nephrology to round to decide about transfusing pt on or off hemodialysis, Pt remains very confused, oriented to self only. Rigt neck dressing from where pt pulled out RIJ central line dry and intact. Left AV fistula remains patent.
[2019-01-02 06:11] LABS: ALBUMIN 2.7 g/dL (3.4-5.0); DIRECT BILIRUBIN 0.9 mg/dL (<0.1-0.3); TOTAL BILIRUBIN 1.4 mg/dL (<0.1-1.0); TOTAL PROTEIN 5.2 g/dL (6.4-8.2)
[2019-01-02 07:56] LABS: BE(vivo) -6.1 mmol/L (-2 to +3); HCO3 17.9 mmol/L (22.0-26.0); PCO2 29.5 mmHg (35.0-45.0); PO2 63.9 mmHg (80.0-100.0); pH 7.401 (7.360-7.450); sO2 92.8 % (92.0-98.0)
--- NOTE | 2019-01-02 09:47 | NUR ---
CONSULTED TO PLACE A CENTRAL LINE THAT WAS DISCONTINUED BY THE PATIENT DURING THE NOC. DISCUSSED THE REPLACEMENT WITH THE AND HE AGREED. QUESTIONS ANSWERED. A #5F TRIPLE LUMEN CENTRAL LINE WAS PLACED PER POLICY AFTER A BEDSIDE TIMEOUT WAS COMPLETE. LINE TRIMMED TO 25CM AND ADVANCED WITHOUT DIFFICULTY. A STAT CHEST XRAY WAS ORDERED FOR CONFIRMATION
[2019-01-02 16:32] LABS: CALCIUM 7.9 mg/dL (8.5-10.1); CREATININE 4.4 mg/dL (0.6-1.0); POTASSIUM 4.4 mmol/L (3.5-5.1)
--- NOTE | 2019-01-02 19:37 | NUR ---
ASSUMED PATIENT CARE AT 0700. PATIENT LYING IN BED WITH EYES OPEN. AAOX1-NAME. PATIENT ON LEVEOPHED, BUT WAS TAKEN OFF. IV INFILTRATED AND ANOTHER CENTRAL LINE WAS PLACED AND PATIENT WAS PUT IN BILATERAL SOFT WRIST RESTRAINTS TO KEEP FROM REMOVING THE LINE. TURNED LEVOPHED OFF. PATIENT TAKEN TO CT FOR ABDOMEN/PELVIC SCANS. FAMILY UPDATED ON POC. PATIENT HAD 3 BM'S THAT WERE SMALL AND HARD. PATIENT ALSO NOTED TO HAVE UNEQUAL PUPILS AND WENT BACK TO CT TO DO A CT OF THE HEAD.
--- NOTE | 2019-01-02 19:59 | NUR ---
PATIENT NOTED TO HAVE EXTRAVASATION IN THE DENISE FROM THE LEVOPHED. STOPPED GTT AND FOLLOWED PROTOCOL AND NOTIFIED MED. ADMINISTERED PHENTOLAMINE ORDERED.
[2019-01-03] VITALS (55 sets, daily range): BP systolic 89–149; BP diastolic 21–59
[2019-01-03 05:21] LABS: HEMOGLOBIN 7.2 gm/dL (12.0-15.0)
[2019-01-03 05:23] LABS: HEMATOCRIT 21.2 % (37.0-47.0); MCH 31.2 pg (26.0-34.0); MCHC 33.8 g/dL (28.0-37.0); MCV 92.4 fL (80.0-100.0); PLATELET COUNT 26 thou/uL (150-400); RDW 18.5 % (10.5-14.5); WBC 15.5 thou/uL (4.0-11.0)
[2019-01-03 05:41] LABS: ALBUMIN 2.3 g/dL (3.4-5.0); CALCIUM 8.1 mg/dL (8.5-10.1); CREATININE 4.6 mg/dL (0.6-1.0); DIRECT BILIRUBIN 0.9 mg/dL (<0.1-0.3); PHOSPHORUS 4.5 mg/dL (2.5-4.9); POTASSIUM 4.3 mmol/L (3.5-5.1); TOTAL BILIRUBIN 1.4 mg/dL (<0.1-1.0)
[2019-01-03 06:23] LABS: ABSOLUTE NEUTROPHILS 12.9 thou/uL (1.4-8.2)
[2019-01-03 06:24] LABS: ANISOCYTOSIS 2+; PLATELET ESTIMATE MARKEDLY DECREASED; POLYCHROMASIA 1+
--- NOTE | 2019-01-03 08:03 | NUR ---
END OF SHIFT SUMMARY: Pt has remained stable this shift. Still more confused than her normal baseline. SBP has remained >90 without vasopressors. Remains on 2 liter nasal canula, sat remains >95%. Monitor sinus rhythm with PACs. Pt remains in soft wrist restraints bilaterally to protect central line and monitor wires. Had 2 small brown, hard stools. No c/o of pain. Right arm very bruised but otherwise skin integrity intact.
--- NOTE | 2019-01-03 08:11 | HC ---
[facility] [place] [address] CONSULTATION Name: RAHEEL DAIGLE Room #: 240-P [facility] IN .R.#: [id number] Admission: 01/01/19 ������������������ Attend Phys: Marcelo Erazo MD Discharge: ������������������ Date of : [birth year] Report #: [id number] THIS REPORT FOR: //name// CC: FAM physician/PCP Marcelo VERAS DATE OF SERVICE: 01/02/2019 ATTENDING PHYSICIAN: Dr. Erazo. REASON FOR EVALUATION: Sepsis, perhaps a complication of pneumonitis. HISTORY OF PRESENT ILLNESS: Chart reviewed, patient examined. This is an 88-year-old woman with a history of end-stage renal disease, on thrice weekly hemodialysis, does have aortic stenosis as well, who developed febrile illness notable at dialysis. Her white count was elevated at 24,000, became more encephalopathic. It is notable she has a degree of dementia that I think is fairly profound. Additional evaluation noted glucose of 10, lactate was elevated at 15 and the procalcitonin was 29.5. Blood cultures were collected, empirically started on therapy with piperacillin, tazobactam as well as some vancomycin. It is notable she had a hip fracture within the last couple of weeks and underwent a stabilizing procedure with ORIF. She is still nonweightbearing. She does have a fistula, she receives dialysis, with no particular complaints. Due to her dementia though, she is unable to give details of her history. At this point, she is somewhat hemodynamically labile. Blood cultures are pending. She is anuric at this point. ALLERGIES: LISTED TO CAPTOPRIL, ALLOPURINOL. CURRENT MEDICATIONS: Include vancomycin dose per pharmacy 500 mg with dialysis 3 times a week. P.r.n. analgesics, Zosyn 3.375 IV q.12, sevelamer. PAST MEDICAL HISTORY: Known end-stage kidney disease, on hemodialysis at this point. Recent hip fracture, aortic valve replacement with a tissue valve, hernia repair, previous colon resection, previous partial lung resection. SOCIAL HISTORY: Nonsmoker, no ethanol. FAMILY HISTORY: Noncontributory. REVIEW OF SYSTEMS: Not reliably obtained given the profound illness on top of her dementia. PHYSICAL EXAMINATION: GENERAL: She appears chronically ill, undernourished, moderate distress at this [facility] [address] [place] [address] CONSULTATION Name: RAHEEL DAIGLE Room #: 240-P [facility] IN M.R.#: [id number] Admission: 01/01/19 ������������������ Attend Phys: Marcelo Erazo MD Discharge: ������������������ Date of : [birth year] Report #: [id number] point. There is some echolalia. Has soft and formed stool. VITAL SIGNS: Temperature 97.8, pulse 69, respirations 19. Blood pressure 116, in the last couple of hours, it was a systolic of 85. Sats are 97%. HEENT: Normocephalic. Extraocular muscle intact. NECK: Supple. LUNGS: Diminished breath sounds. Few scattered coarse sounds, left greater than right. ABDOMEN: Soft, no apparent tenderness. There are no peritoneal signs. LOWER EXTREMITIES: With some edema. GENITOURINARY: Deferred. RECTAL: Deferred. LABORATORY DATA: Chest x-ray showed left basilar partially consolidated infiltrate with suspected effusion. Initial CBC: White count 24.6, H and H 7.9 and 24.5, platelets of 64. Electrolytes: Sodium 133, potassium 4.8, chloride 190, bicarbonate is 17, anion gap of 26, BUN and creatinine 31 and 4.1. Glucose at that point was 10. Estimated GFR of 10. Lactic acid elevated at 15.2. Procalcitonin elevated at 29.46. PT of 27.4, INR of 2.6. Repeat lactic acid this morning of 8.2. CBC: White count of 21.1, hemoglobin and hematocrit 6.4 and 19.7, platelets of 48. Anion gap has come down to 20 this morning. Albumin of 2.6. ASSESSMENT: Sepsis, likely a component of pneumonitis. This is difficult to know if this is a complication of primary issue. She does have several markers that are poor prognostic indicators at this point given her age and her overall debility. We will continue empiric broad-spectrum antibiotic therapy, vancomycin, Zosyn. We will await culture results. Given the high white count would be worried about abdominal related issues. Would check abdominal ultrasound and check liver function tests. If she has diarrhea, we will check C. diff study as well. Overall, prognosis is quite guarded. ��������������������������������������������� <ELECTRONICALLY SIGNED> ���������������������������������������� By: Ercik Parks MD ��������������������������������������������� 01/03/19 0811 0548 [id number] Erick Parks MD /nt
--- NOTE | 2019-01-03 09:56 | 2DMMODE ---
[facility] [place] [address] 2 D/M-MODE ECHOCARDIOGRAM Name: RAHEEL DAIGLE [place] Room #: 240-P [facility] IN [facility].#: [id number] ������������� Admission: 01/01/19 ������������� Attend Phys: Marcelo Erazo MD Discharge: ��� ������������� ��� Date of : [birth year] Date of Service: 01/03/19 0956 �� Report #: [id number] �������� ��������������������������������������������[id number] THIS REPORT FOR: //name// APPROVED REPORT Study performed: 01/03/2019 08:10:09 EXAM: Comprehensive 2D, Doppler, and color-flow Echocardiogram Patient Location: ICU Room #: 240 Status: routine BSA: 1.59 HR: 61 bpm BP: 105/41 mmHg Other Information Study Quality: Adequate Indications CAD bacteremia, hx of bioprosthetic valve 2D Dimensions RVDd: 41.20 mm IVSd: 8.64 (7-11mm) LVOT Diam: 18.52 (18-24mm) LVDd: 49.83 mm PWd: 11.17 (7-11mm) Ascending Ao: 27.08 (22-36mm) LVDs: 37.60 (25-40mm) Aortic Root: 25.92 mm IVC: 21.00 mm Volumes Left Atrial Volume (Systole) Single Plane 4CH: 81.03 mL Single Plane 2CH: 71.67 mL LA ESV Index: 57.00 mL/m2 Aortic Valve AoV Peak Miquel.: 4.56 m/s AO Peak Gr.: 83.11 mmHg LVOT Max P.36 mmHg AO Mean Gr.: 48.29 mmHg LVOT Mean P.61 mmHg AO V2 Mean: 3.27 m/s LVOT Max V: 1.04 m/s AO V2 VTI: 111.74 cm LVOT Mean V: 0.75 m/s NHUNG (VTI): 0.59 cm2 LVOT V1 VTI: 24.55 cm NHUNG Vmax: 0.62 cm2 AI Vmax: 3.56 m/s SV (LVOT): 66.09 mL AI Chilton: 3.22 m/s2 [facility] [place] [address] 2 D/M-MODE ECHOCARDIOGRAM Name: RAHEEL DAIGLE Room #: 240-P [facility] IN ..#: [id number] ������������� Admission: 01/01/19 ������������� Attend Phys: Marcelo Erazo MD Discharge: ��� ������������� ��� Date of : [birth year] Date of Service: 01/03/19 0956 �� Report #: [id number] �������� ��������������������������������������������[id number] AI PHT: 320.47 ms Mitral Valve E/A Ratio: 1.2 MV Decel. Time: 140.42 ms MV E Max Miquel.: 1.47 m/s MV A Miquel.: 1.21 m/s MV PHT: 40.72 ms IVRT: 72.66 ms Pulmonary Valve PV Peak Miquel.: 0.79 m/s PV Peak Gr.: 2.51 mmHg Tricuspid Valve TR Peak Miquel.: 2.87 m/s RAP Estimate: 10.00 mmHg TR Peak Gr.: 33.03 mmHg PA Pressure: 43.00 mmHg Left Ventricle The left ventricle is normal size. There is normal LV segmental wall motion. There is normal left ventricular wall thickness. The left ventricular systolic function is normal. The left ventricular ejection fraction is within the normal range. LVEF is 50-55%. Moderate diastolic dysfunction is present (pseudonormal filling). Right Ventricle The right ventricle is normal size. The right ventricular systolic function is normal. Atria Left atrium is dilated. The right atrium size is normal. Aortic Valve Bioprosthetic aortic valve is present. Thickened leaflets Bioprosthetic aortic valve is present. Mild-moderate aortic regurgitation. There is severe valvular aortic stenosis. Calculated aortic valve area is 0.6 cm2 with maximum pressure gradient of 83 mmHg and mean pressure gradient of 48 mmHg. Mitral Valve Moderate mitral annular calcification. Mild to moderate mitral regurgitation. No evidence of mitral valve stenosis. Tricuspid Valve The tricuspid valve is normal in structure[place] [address] 2 D/M-MODE ECHOCARDIOGRAM Name: RAHEEL DAIGLE Room #: 240-P [facility] IN M.R.#: [id number] ������������� Admission: 01/01/19 ������������� Attend Phys: Marcelo Erazo MD Discharge: ��� ������������� ��� Date of : [birth year] Date of Service: 01/03/19 0956 �� Report #: [id number] �������� ��������������������������������������������[id number] regurgitation. PAP is estimated at 40 mmHg. Pulmonic Valve The pulmonary valve is normal in structure. Mild pulmonic regurgitation. Great Vessels The aortic root is normal in size. IVC is upper limits of normal in size and collapses <50% with inspiration. Pericardium There is no pericardial effusion. <Conclusion> The left ventricular systolic function is normal. LVEF is 50-55%. Left atrium is dilated. Bioprosthetic aortic valve is present. Thickened leafletd, severe stenosis. Peak pressure gradient of 83 mmHg, mean pressure gradient of 48 mmHg. Moderate mitral annular calcification. Mild to moderate mitral regurgitation. Severe tricuspid regurgitation. Pulmonary artery pressure estimated at 40 mmHg. There is no pericardial effusion. ��������������������������������������������� <ELECTRONICALLY SIGNED> ���������������������������������������� By: Yogi Arevalo MD, [facility] ��������������������������������������������� 01/03/1956 5 5 Yogi Arevalo MD, FACC /INF
[2019-01-03 10:07] LABS: APTT 47.8 Seconds (24.5-32.8); FIBRINOGEN 255.1 mg/dL (210-360); INR 1.7; PROTIME 18.1 Seconds (9.3-11.4)
--- NOTE | 2019-01-03 14:15 | NUR ---
CM ASSESSMENT: CASE OPENED FOR DC PLANNING. CLINICAL INFO REVIEWED. PT ADMIT WITH SEPSIS. KNOW TO CM FORM PREVIOUS [facility] ADMIT 11/2018 AT WHICH TIME SPOUSE INTERESTED IN 5N ACUTE REHAB BUT DECLINED TOO LOW LEVEL. PT DC TO SKILLED REHAB AT [facility] AND [facility]. PT TRANSITIONED TO [facility]. SPOKE WITH ANDREA IN ADMISSIONS AT FACILITY WHO CONFIRMS FACILITY PROVIDES TRANSPORT TO DIALYSIS. THERAPY EVALS PENDING. WILL FOLLOW TO SPEAK WITH SPOUSE TO CONFIRM DC PALN TO RETURN TO [facility] AT [facility].
--- NOTE | 2019-01-03 16:12 | NUR ---
FAXED CLINICAL UPDATE TO RAVINDER CLAYTON. ALSO NOTIFIED ADRIANNA VARGHESEI OF PT'S ADMISSION. DCP TO FOLLOW.
--- NOTE | 2019-01-03 17:07 | EKG ---
[place] [address] [facility] [place] [address] ELECTROCARDIOGRAM REPORT Name: RAHEEL DAIGLE Room #: 240-P AD[facility] IN M.R.#: [id number] ������������������ Admission: 01/01/19 ������������������ Attend Phys: Marcelo Erazo MD Discharge: ������������������ Date of : [birth year] Report #: [id number] ����������������������������������������������������������������� [id number] THIS REPORT FOR: //name// [facility] Test Date: 2019-01-03 Test Time: 08:55:15 Pat Name: RAHEEL DAIGLE Department: Room: 240 P Gender: F Concrete Saw Operator: OBINNA : 1930 Requested By: Yogi Arevalo Order Number: [id number] MD: Yogi Arevalo Measurements Intervals [place] Rate: 65 P: -54 OK: 204 QRS: 75 QRSD: 149 T: -42 QT: 469 QTc: 488 Interpretive Statements Sinus rhythm Right bundle branch block Nonspecific T wave abnormality Compared to ECG 08/29/2018 18:19:46 No significant change was found Electronically Signed On 01-03-2019 17:07:26 CDT by Yogi Arevalo [email or web address] ��������������������������������������������� <ELECTRONICALLY SIGNED> ���������������������������������������� By: Yogi Arevalo MD, [facility] ��������������������������������������������� 01/03/19 1707 0855 4 Yogi Arevalo MD, [facility] /EPI
[2019-01-03 19:05] LABS: CALCIUM 8.5 mg/dL (8.5-10.1); CREATININE 2.1 mg/dL (0.6-1.0); POTASSIUM 3.4 mmol/L (3.5-5.1)
--- NOTE | 2019-01-03 19:21 | NUR ---
ASSUMED PATIENT CARE AT 0700. PATIENT LYING IN BED WITH EYES SHUT. OPENS EYES TO COMMAND. PATIENT ON 2L NC AT 100%. PATIENT AAOX1-SELF AND REPEATS CONSISTENTLY I KNOW. PATIENT RECEIVED HD TODAY. DURING PROCESS, PATIENT'S RHYTHM CHANGED TO TRIGEMINY WITH BOUTS OF A-FIB. NOTIFIED STAMP ANALYST (Williams CARRASCO). HE RESUMED PATIENT'S PO CARDIZEM. ABDOMEN APPEARS MORE ROUNDED THAN YESTERDAY. BS HYPOACTIVE. PATIENT HAD 1 SMALL BM THAT WAS HARDENED AND VERY DRY. FAMILY UPDATED ON POC.
--- NOTE | 2019-01-03 20:44 | HC ---
[facility] [place] [address] CONSULTATION Name: RAHEEL DAIGLE Room #: 240-P ADM IN .R.#: [id number] Admission: 01/01/19 ������������������ Attend Phys: Marcelo Erazo MD Discharge: ������������������ Date of : [birth year] Report #: [id number] THIS REPORT FOR: //name// CC: FAM physician/PCP Marcelo VERAS TYPE OF REPORT: Pulmonary consultation. REFERRAL PHYSICIAN: Marcelo Erazo M.D. REASON FOR REFERRAL: Sepsis. HISTORY OF PRESENT ILLNESS: The patient is an 88-year-old white female who was brought to the Emergency Department with hypoglycemia and hypotension. She was subsequently found to have significant leukocytosis, elevated procalcitonin. Recent blood culture was said to be positive. She was admitted. A Pulmonary Critical Care consultation was requested. The patient sustained a left femur fracture in August 2018. She sustained another injury to the left hip with displaced femur fracture. She again underwent surgery in middle of November. Prior to that, the patient had been living independently with her at home. Since her initial fracture in August and then in November, daughter knows that she has been getting more weaker. There is also some mild confusion. She feels it is related to medications. Otherwise, the patient is awake, somewhat confused, does not appear to be in distress. PAST MEDICAL HISTORY: Notable for end-stage renal disease, undergoing hemodialysis over the last several years; history of polycystic kidney disease; status post bioprosthetic aortic valve placement; degenerative joint disease; history of left hip fracture initially in August and then subsequently in November, undergoing surgery on both occasions; coronary artery disease, undergoing coronary artery bypass surgery in 2011; hypertension; history of sleep apnea and spinal stenosis. PAST SURGICAL HISTORY: As mentioned above: Status post bioprosthetic valve in 2011; hiatal hernia repair; colectomy; lobectomy in 1973, reasons unknown; left hip hemiarthroplasty in August and then left femur fracture; periprosthetic in the midshaft area repair on 12/04/2018 and history of colovesical fistula, status post repair due to diverticulitis. ALLERGIES: ALLOPURINOL; CAPTOPRIL, which causes pruritus; TRAMADOL, causes nausea, vomiting; ALLOPURINOL, causes a rash and HYDROCODONE, causes nausea, [facility] [address] [place] [address] CONSULTATION Name: RAHEEL DAIGLE Room #: 240-P [facility] IN [facility].#: [id number] Admission: 01/01/19 ������������������ Attend Phys: Marcelo Erazo MD Discharge: ������������������ Date of : [birth year] Report #: [id number] vomiting. HOME MEDICATIONS: Reviewed and this includes Neurontin, , Sensipar, fiber source, docusate, Renvela and fish oil supplements. FAMILY HISTORY: Noncontributory. SOCIAL HISTORY: Denies any tobacco or alcohol use. She is , had been living at home with her . She has children who lives close by. MEDICAL DIRECTIVE: Full code blue for now. PHYSICAL EXAMINATION: GENERAL: She is awake and alert, in no distress. VITAL SIGNS: Temperature is 98 degrees Fahrenheit, pulse is 63, respiratory rate is 20, blood pressure 109/37 mmHg and saturation 97%. HEENT: Normocephalic and atraumatic. NECK: Supple, without any lymphadenopathy or thyromegaly. CHEST: Breath sounds are fair due to poor effort. Few scattered crackles. No wheezes. CARDIOVASCULAR: No obvious murmurs or gallop. Pulses are 2+/4+ bilaterally. BREASTS: Exam is deferred. ABDOMEN: Soft and nontender. No organomegaly or masses felt. GENITOURINARY: Deferred. RECTAL: Deferred. EXTREMITIES: There is no edema, cyanosis or clubbing. NEUROLOGICAL: She is awake and confused. RADIOLOGICAL DATA: Portable chest x-ray shows mild interstitial changes, appears to be chronic, no evidence of consolidation. LABORATORY DATA: Procalcitonin level is 29. Lactic acid is 15. Admitting glucose was 10, sodium 132, potassium 4.6, chloride 94, CO2 17, BUN is 32 and creatinine is 3.9. Liver enzymes are markedly elevated. WBC 24,600; hemoglobin 7.9 and platelets 64,000 with significant bandemia. An apparent blood culture from outside facility was said to be positive. IMPRESSION: 1. Severe sepsis with leukocytosis, elevated procalcitonin level, hypoglycemia and hypotension. Her blood culture was said to be positive. Source of infection is unclear at this time. Possible pneumonia, though infiltrate suggests chronic process. We will need to consider other source of infection such as dialysis fistula, bioprosthetic valve, prosthetic left femur and also intra-abdominal source. 2. Infiltrates. As mentioned above, so the changes appear to be chronic, may be interstitial edema. [facility] [address] [place] [address] CONSULTATION Name: RAHEEL DAIGLE Room #: 240-P ADM IN M.R.#: [id number] Admission: 01/01/19 ������������������ Attend Phys: Marcelo Erazo MD Discharge: ������������������ Date of : [birth year]/14/[birth year] Report #: [id number] 3. End-stage renal disease, on hemodialysis. 4. History of polycystic kidney disease. 5. Status post bioprosthetic aortic valve. 6. Coronary artery disease, status post coronary bypass surgery in 2011. 7. Hip fracture initially in August 2018, subsequent mid shaft fracture in November 2018. 8. Anemia, thrombocytopenia related to severe sepsis. RECOMMENDATIONS: Agree with broad-spectrum antibiotics. Await blood cultures. We will try to obtain sputum culture. Not able to obtain a urine culture due to end-stage kidney disease. We will treat for presumed pneumonia for now. Low suspicion is felt to be less likely. We will also recommend echocardiogram on Thursday to assess bioprosthetic valve. Ultimately, if infectious source is not determined, need to consider left prosthetic hip, fistula for her dialysis, etc. Also agreed not to initiate sepsis protocol given her anuric status. Vasopressor for not good to keep systolic blood pressure greater than 90 mmHg or mean arterial pressure greater than 60. DVT and GI prophylaxis recommended. With severe comorbid conditions, advanced age and questionable dementia, overall outlook appears to be quite guarded to poor. At this time, family wishes aggressive interventions including full code blue. Thank you for this consultation. Critical care time 1 hour. ��������������������������������������������� <ELECTRONICALLY SIGNED> ���������������������������������������� By: Cyrus Mccoy MD ��������������������������������������������� 01/03/19 2044 1343 0153 Cyrus Mccoy MD /nt
[2019-01-04] VITALS (47 sets, daily range): BP systolic 80–167; BP diastolic 16–116
--- NOTE | 2019-01-04 06:09 | NUR ---
END OF SHIFT SUMMARY: No significant changes in patient status. Pt remains more confused than normal baseline. Sometimes repeats phrases over and over such as "Oh no, Oh no" or "I don't know, I don't know". Moves all extremities equally except for left leg which had recent hip pinning. Remains on O2 at 2 L, sat 99-100%, lungs clear and diminished. Afebrile, VS stable; monitor has been sinus rhythm with BBB and occasional PVC's and PAC's. Fentanyl given x1 when pt was crying, restless and fretful.
[2019-01-04 06:10] LABS: HEMATOCRIT 21.1 % (37.0-47.0); HEMOGLOBIN 7.2 gm/dL (12.0-15.0); RDW 18.2 % (10.5-14.5)
[2019-01-04 06:11] LABS: MCH 31.2 pg (26.0-34.0); MCV 91.7 fL (80.0-100.0); RBC 2.31 mil/uL (4.20-5.00); WBC 12.5 thou/uL (4.0-11.0)
[2019-01-04 06:54] LABS: ALBUMIN 2.3 g/dL (3.4-5.0); CALCIUM 8.4 mg/dL (8.5-10.1); CREATININE 2.8 mg/dL (0.6-1.0); POTASSIUM 3.7 mmol/L (3.5-5.1)
--- NOTE | 2019-01-04 15:16 | NUR ---
ASSUMED CARE OF PT A APPROX 0700. PT IS ALERT, ABLE TO FOLLOW SIMPLE COMMANDS MOST TIMES BUT IT CONFUSED. PT RESTLESS, EASED WITH REPOSITIONING. PT MOANS IN PAIN THAT IS MODERATELY RESOLVED WITH PRN PAIN MEDICATIONS. DENIES SOA, EVEN NON LABORED BREATHING. ABLE TO MAINTAIN 02 SAT >90 ON RA. ASSESSMENT CHARTED. FAMILY UPDATED ON POC. COMMUNICATES UNDERSTANDING. PT QUYEN SARMIENTO PROGRESS TOWARDS POC GOALS. WILL CONTINUE TO MONITOR.
[2019-01-05] VITALS (31 sets, daily range): BP systolic 105–153; BP diastolic 32–105
--- NOTE | 2019-01-05 04:44 | NUR ---
ASSUMED CARE OF PATIENT AT 1900. VSS, AFEBRILE. DAUGHTER TO BEDSIDE, EXPRESSED CONCERN THAT PAIN MEDS ARE MAKING PATIENT MORE CONFUSED. STATES IV MEDS ARE MORE EFFECTIVE. EDUCATION GIVEN ABOUT PAIN MANAGEMENT. PATIENT GIVEN PAIN MEDS TWICE, PATIENT ABLE TO REST WITH NO S/S OF DISTRESS. CAN BECOME VERY AGITATED AT TIMES, THROWS LEG OUT OF BED, SCOOTS TO THE BOTTOM. RESTRAINTS REMAIN IN PLACE. SEE DOCUMENTATION. LABS DRAWN THIS MORNING, MONITORING CLOSELY.
[2019-01-05 04:56] LABS: CALCIUM 7.9 mg/dL (8.5-10.1); CREATININE 3.4 mg/dL (0.6-1.0); POTASSIUM 3.7 mmol/L (3.5-5.1)
[2019-01-05 05:01] LABS: % SATURATION 98 % (20-39); IRON 169 ug/dL (50-170); TIBC 173 ug/dL (250-450)
[2019-01-05 05:03] LABS: INR 1.8; PROTIME 18.4 Seconds (9.3-11.4)
[2019-01-05 05:08] LABS: HEMATOCRIT 21.7 % (37.0-47.0); HEMOGLOBIN 7.3 gm/dL (12.0-15.0); MCH 31.8 pg (26.0-34.0); MCHC 33.9 g/dL (28.0-37.0); RBC 2.31 mil/uL (4.20-5.00); RDW 18.6 % (10.5-14.5); WBC 13.7 thou/uL (4.0-11.0)
[2019-01-05 06:04] LABS: FOLIC ACID 24.7 ng/mL (8.6-58.9)
[2019-01-05 06:29] LABS: ABSOLUTE NEUTROPHILS 11.1 thou/uL (1.4-8.2)
[2019-01-05 06:31] LABS: ANISOCYTOSIS 2+; PLATELET ESTIMATE MARKEDLY DECREASED; POLYCHROMASIA 2+
[2019-01-05 06:33] LABS: PLATELET COUNT 7 thou/uL (150-400)
--- NOTE | 2019-01-05 09:27 | NUR ---
ONE UNIT PLATELETS TRANSFUSED DURING DIALYSIS BY MARINA FRAIS. NO REACTION NOTED
[2019-01-05 10:08] LABS: HEMOGLOBIN 7.1 g/dL (11.1-15.9)
[2019-01-05 11:55] LABS: HEMATOCRIT 21.9 % (37.0-47.0); HEMOGLOBIN 7.4 gm/dL (12.0-15.0); MCH 31.1 pg (26.0-34.0); MCHC 33.6 g/dL (28.0-37.0); MCV 92.6 fL (80.0-100.0); RBC 2.37 mil/uL (4.20-5.00); RDW 18.3 % (10.5-14.5); WBC 15.1 thou/uL (4.0-11.0)
--- NOTE | 2019-01-05 16:10 | NUR ---
PT HAD DIALYSIS THIS AM, 1.5 LITERS OFF, TOLERATED WELL. PT TITRATED TO ROOM AIR. ARIELLA WRIST RESTRAINTS D/C'D THIS AFTERNOON, PT LESS RESTLESS AND FOLLOWING COMMANDS. PT REMAINS CONFUSED AT BASELINE WITH HX OF DEMENTIA. PT TRANSFERRING TO ROOM 363, AT BEDSIDE AND AWARE OF TRANSFER. ALL BELONGINGS PACKED TO GO WITH PT
--- NOTE | 2019-01-05 19:39 | NUR ---
report received from Emeli/rn in icu @ 1638. pt tx to room 363 @ 1740 w/ pt's and daughter at bs. pt noted to be restless in bed w/ repetative verbal statements that family state may or may not be true. pt's daughter verbalizing great frustration in that she was told her mother would not be transferred today, but was. pt's and daughter concerned that the pt will pull out the rt ij iv access since she is a 'bead picker' and has a previous hx of pulling out iv accesses. family member want to find a state in which the pt has pain control, but is also awake enough to eat her meals and participate in her tx/therapies. pt w/ a good appetite for dinner (although the entire meal she said she wanted nothing) but is a feeder. no aspiration noted while pt was eating and drinking. family states that they will not spend the noc, but they have great concern about leaving the pt overnight. states he will return at 0800.
--- NOTE | 2019-01-05 21:34 | NUR ---
PT IS PULLING AT HER PICC LINE AND PULLING HERSELF OUT OF THE BED. SHE IS COMPRIMISING TREATMENT AND IS A DANGER TO HERSLF. PLACED BILATERAL SOFT WRIST RESTRAINTS PER PROVIDER ORDER AT THIS TIME.
[2019-01-06 03:50] VITALS: BP 111/42
--- NOTE | 2019-01-06 04:54 | NUR ---
resting but awake most of the night. no signs of pain, she has been in restraints tonight to prevent pulling at lines. careplan reviewed. progressing slowly toward discharge goals.
[2019-01-06 07:15] LABS: HEMOGLOBIN 7.6 gm/dL (12.0-15.0); WBC 16.5 thou/uL (4.0-11.0)
[2019-01-06 07:16] LABS: HEMATOCRIT 22.5 % (37.0-47.0); MCH 31.5 pg (26.0-34.0); MCHC 33.7 g/dL (28.0-37.0); MCV 93.3 fL (80.0-100.0); RBC 2.41 mil/uL (4.20-5.00); RDW 18.7 % (10.5-14.5)
[2019-01-06 07:25] LABS: PROTIME 18.3 Seconds (9.3-11.4)
[2019-01-06 07:26] LABS: INR 1.8
[2019-01-06 07:38] LABS: ALBUMIN 2.5 g/dL (3.4-5.0); CALCIUM 8.7 mg/dL (8.5-10.1); PHOSPHORUS 2.6 mg/dL (2.5-4.9)
[2019-01-06 07:39] LABS: CREATININE 2.3 mg/dL (0.6-1.0)
[2019-01-06 07:58] VITALS: BP 131/60
--- NOTE | 2019-01-06 08:08 | HC ---
[facility] [place] [address] CONSULTATION Name: RAHEEL DAIGLE Room #: 363-P ADM IN M.R.#: [id number] Admission: 01/01/19 ������������������ Attend Phys: Marcelo Erazo MD Discharge: ������������������ Date of : [birth year] Report #: [id number] THIS REPORT FOR: //name// CC: Adan Arevalo MD [facility] Robson Holt MD [facility] physician/PCP Marcelo VERAS REQUESTING PHYSICIAN: Castro Robertson MD REASON FOR CONSULTATION: Thrombocytopenia. HISTORY OF PRESENT ILLNESS: The patient is an 88-year-old female with a premorbid history of recent left hip arthroplasty, I believe back in November after a fall. Also, end-stage renal disease. Also, some cognitive impairment, also hyperparathyroid, also history of colon and lung resection for nonspecific reasons in the past. The patient's platelet counts had been notable for the previous back in August 29/2018 of 154 range; on admission in November 129 and on discharge in November. On readmission on 01/01 is 64. Subsequent day for 48,000, 26,000, 14,000 yesterday, then 7000 today. Note, the patient has not been having noted to have any unusual bruising or bleeding during this time. During the same time, her hemoglobin, which is a baseline of around 7.8-7.9, on this admit was 7.9 and is today 7.3. White count during these times in the past have been around 6 and 8 range. Here on admit, it was 24.6, is 13.7 today. MCV is normal. Differential has increased segs and bands. No metamyelocytes, myelocytes, things of that type. Did have 1 atypical lymphocyte 5 years ago. Also, note that during the same time, the patient was admitted this time with what was presumed sepsis, was hypotensive. Cultures have been negative. Note that she does have shock liver. BUN has recently been 40, creatinine 3.4, AST which had been 6707 on 01/02/2019, was down to 2300 on 01/03/2019. Total bilirubin had been 1.4 several days ago. Alkaline phosphatase 163, SGPT has also been elevated at 4800, was down to 3140 two days ago. Albumin yesterday 2.3. Recent iron panel shows iron of 169%, saturation 98%, TIBC 173. Protime drawn on admission was 2.6, is 1.8 today, had been 1.7 yesterday. APTT have been slightly elevated at 44.8 on admission. Fibrinogen has been good at 255, folate 24.7, vitamin B12 5846. Procalcitonin was elevated at 29.46. Note, the patient's note showed no UA available. 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 Large bone cyst just above the left acetabulum, chronic changes in both lungs with mild atelectasis versus pneumonitis. [address] [address] CONSULTATION Name: RAHEEL DAIGLE Room #: 363-P ADM IN M.R.#: [id number] Admission: 01/01/19 ������������������ Attend Phys: Marcelo Erazo MD Discharge: ������������������ Date of : [birth year]/14/[birth year] Report #: [id number] GENERAL HISTORY: The patient is currently in ICU and is not able to answer questions very well, pretty much most answers are I do not know. She seems to deny any discomfort in terms of shortness of breath or nausea. Does talk about some left hip discomfort. Otherwise, no specific complaints. PAST MEDICAL HISTORY: Notable for the end-stage renal disease, undergoing hemodialysis for several years; history of polycystic kidney disease; history of porcine bioprosthetic aortic valve replacement in the past; history of degenerative joint disease; history of recent left hip fracture initially in August and I believe then in November, underwent surgery on both occasions; history of coronary artery disease with bypass in 2011; history of hypertension; history of sleep apnea; history of spinal stenosis. Also, history of hyperparathyroidism. PAST SURGICAL HISTORY: Includes a bioprosthetic valve in 2011, hiatal hernia repair in the past, partial colectomy in the past, partial lobectomy in 1973 reasons unknown, then had a left hip hemiarthroplasty in August, then left femur fracture with periprosthetic midshaft repair in 12/04/2018, history of colovesical fistula, which had been thought due to diverticulitis. ALLERGIES: Reportedly to ALLOPURINOL, CAPTOPRIL, TRAMADOL, and HYDROCODONE. MEDICATIONS: At this time in the hospital currently include lidocaine patch, cefepime 1 gram daily begun on the , diltiazem 120 mg daily p.o., vancomycin 500 mg begun on 01/03/2019, fentanyl p.r.n., alteplase p.r.n., Tylenol p.r.n., Percocet p.r.n., sevelamer 1600 mg t.i.d., MiraLax p.r.n., Zofran p.r.n., ipratropium and albuterol every 4 hours. SOCIAL HISTORY: Not a smoker, no use of alcohol. Had been in the past, had lived at home with her if I understand, recently has been in a nursing facility, has children in town. PHYSICAL EXAMINATION: VITAL SIGNS: Height is reported as 5 feet 4 inches, 162.6 cm, weight 115 pounds or 52.16 kilograms. Recent blood pressure 145/51 with respirations of 12, O2 sat 100%, pulse 56, temperature 97.9 axillary. MOOD: The patient appears pleasant, though is a poor historian and seems distracted and hard time focusing. HEENT: Face seems symmetrical. The patient does have a bit of dried blood in her mouth, but just minor. I do not see any obvious ecchymosis or bruising. LUNGS: Have some slight coarseness, but no definite wheezes or rales. HEART: Appears regular rate. LYMPHATICS: No enlarged lymph nodes in the supraclavicular, cervical, axillary, or inguinal region. ABDOMEN: Slightly protuberant. No masses, Seems nontender. EXTREMITIES: Does have a central line in place, has SCDs on her legs. [facility] [address] [place] [address] CONSULTATION Name: RAHEEL DAIGLE Room #: 363-P [facility] IN M.R.#: [id number] Admission: 01/01/19 ������������������ Attend Phys: Marcelo Erazo MD Discharge: ������������������ Date of : [birth year]/14/[birth year] Report #: [id number] ASSESSMENT AND PLAN: 1. Thrombocytopenia, most likely related to severe sepsis and shock liver. Had check B12, iron, folate, which appear to be repleted. No definite clotting or bleeding noted. Would transfuse in the setting of sepsis to keep platelets above 15 or 20 thousand. I have ordered platelet transfusion with platelet count 1 hour posttransfusion and again in the morning. We will also keep an eye on INR, which is slightly elevated at 1.8, do not see any high risk medications either at discharge or on admit note, the patient had received several doses of subcutaneous heparin. We will check heparin associated platelet antibody, but clinically I do not think this is likely in the setting of sepsis and may just be that taking longer to recover than rather sepsis parameters. 2. Sepsis. No bacteria identified, been improving. Reportedly pressures continues, multiple antibiotics per ID. 3. End-stage renal disease. Continue hemodialysis. 4. Anemia, had been on EPO in the past. No obvious bleeding. Would prefer to keep hemoglobin above 7 ____ otherwise. 5. Porcine aortic valve replacement appears to be functioning well. 6. Hyperparathyroidism, meds per others. 7. History of left hip surgery and then femur shaft fracture, status post repair and does not appear to be overtly infected, we will defer to others. 8. Memory issues. May also be ICU psychosis, we will defer to others. We will follow along. ��������������������������������������������� <ELECTRONICALLY SIGNED> ���������������������������������������� By: Marco Johnson MD ��������������������������������������������� 01/06/19 0808 0746 1119 Marco Johnson MD /nt
[2019-01-06 09:33] LABS: ABSOLUTE NEUTROPHILS 12.5 thou/uL (1.4-8.2)
[2019-01-06 09:36] LABS: ANISOCYTOSIS 2+; LARGE PLATELETS MANY; PLATELET ESTIMATE MARKEDLY DECREASED
--- NOTE | 2019-01-06 09:37 | HC ---
[facility] [place] [address] CONSULTATION Name: RAHEEL DAIGLE Room #: 363-P ADM IN ..#: [id number] Admission: 01/01/19 ������������������ Attend Phys: Marcelo Erazo MD Discharge: ������������������ Date of : [birth year]/14/[birth year] Report #: [id number] THIS REPORT FOR: //name// CC: FAM physician/PCP Marcelo VERAS REASON FOR CONSULTATION: End-stage renal disease. REASON FOR PRESENTATION: Fever. HISTORY OF PRESENT ILLNESS: An 88-year-old with past medical history of end-stage renal disease. The patient developed fever on Thursday night. She had some issues with abnormal labs including elevated white blood cell count. She recently moved to [facility]. She was sent from her nursing facility in [facility] because of an elevated white blood cell and positive blood culture. She had all stigmata of full blown sepsis with elevated white blood cell count, thrombocytopenia, high lactic acidosis. She also developed hypoglycemia. Consult was placed for me to manage her end-stage renal disease. She is a very well-known patient to me. She is a dialysis patient who gets her treatment in [place] every Thursday, Thursday and Thursday. She is known to have a bioprosthetic aortic valve. She is utilizing a left AV fistula. Source of the sepsis is not yet identified. She has had recent femur fracture, status post left hip prosthesis. PAST MEDICAL HISTORY: 1. End-stage renal disease. 2. Status post lobectomy. 3. Colon resection. 4. Status post bioprosthetic aortic valve. 5. Left hip hemiarthroplasty. 6. Coronary artery disease. 7. Chronic hypertension. 8. Remote history of peritoneal dialysis catheter post-insertion and removal. REVIEW OF SYSTEMS: Currently, the patient is having acute mental status issues and not able to provide me with the history. FAMILY HISTORY: Significant for hypertension. HOME MEDICATIONS: 1. Diltiazem. 2. Gabapentin. 3. Sevelamer. 4. Cinacalcet. 5. Melatonin. [address] [address] CONSULTATION Name: RAHEEL DAIGLE Room #: 363-[facility] IN [facility].#: [id number] Admission: 01/01/19 ������������������ Attend Phys: Marcelo Erazo MD Discharge: ������������������ Date of : [birth year]/14/[birth year] Report #: [id number] PHYSICAL EXAMINATION: GENERAL: She is very lethargic. VITAL SIGNS: Blood pressure is 80/40, maintained on Levophed. Pulse is 67, respiratory rate is 19. HEAD AND NECK: No jugular venous distention. CHEST: Decreased air entry bilaterally with crackles. CARDIOVASCULAR: No rub detected. ABDOMEN: Tender. LOWER EXTREMITIES: No edema. UPPER EXTREMITIES: Left AV fistula. LABORATORY DATA: Reviewed. Platelets 48,000. Hemoglobin is down to 6.4. Lactate was 6.5 yesterday. Sodium was 132, potassium was 4.9, BUN is 36, creatinine is 4.1. Urine sample has not been received. Cultures in-house pending. ASSESSMENT, IMPRESSION, PLAN: 1. Septic shock with elevated white blood cell count, severe sepsis, lactic acidosis. 2. Hypoglycemia. 3. End-stage renal disease. 4. Aortic stenosis, post bioprosthetic valve. 5. Recent left hip surgery. 6. Appropriate antibiotics initiated. 7. No dialysis today. 8. Dialysis in the morning. 9. ID consultation. 10. Obtain her nursing facility blood cultures. 11. Pressors with no IV fluid other than D10 to keep her blood sugar in the normal range. 12. We will have to discuss scope of care with the family. Very guarded prognosis. ��������������������������������������������� <ELECTRONICALLY SIGNED> ���������������������������������������� By: Adan Costello MD ��������������������������������������������� 01/06/19 0937 0830 0922 Adan Costello MD /nt
[2019-01-06 09:38] LABS: PLATELET COUNT 15 thou/uL (150-400)
--- NOTE | 2019-01-06 11:14 | NUR ---
care of pt assumed this am @ 0700. pt resting quietly and comfortably in bed, pt noted to become more verbal when staff in room interacting w/ her. pt denies co pain this. vss. no visual signs that the pt is in pain. pt repositioned for skin integrity and comfort. family ( and daughter of pt) arrived @ ~ 0900. they immediately requested the nurse and informed the nursing assistants teacher that "my mother is in pain and needs pain medication". family was informed of the [facility] nurse assessment of the pt and her need for pain medications last night. dr. baer spoke w/ both family members this am. pt denies co pain, but family states "she doesn't know what she is saying" "she is in pain and needs pain medication now". family members were informed by the rn that if pain medication is given as frequently as they would like given to the patient that she could have a depressed respiratory drive which could lead to the need to intubate and ventilate. physical therapy at to work with the pt per the order yesterday and the 's multiple requests this am.
[2019-01-06 13:20] VITALS: BP 113/48
[2019-01-06 15:05] VITALS: BP 111/46
[2019-01-06 19:50] VITALS: BP 122/47
[2019-01-06 22:44] VITALS: BP 117/46
[2019-01-07 04:30] VITALS: BP 115/42
--- NOTE | 2019-01-07 05:54 | NUR ---
PT MAKING SLOW PROGRESS TOWARDS GOALS. AT TIMES PT WILL REPEAT WORDS OVER AND OVER AGAIN. SHE HAS BEEN ABLE TO STATE HER NAME ACCURATELY. THIS MORNING PT ABLE TO STATE HER FIRST AND LAST NAME CORRECTLY, HER YEAR CORRECTLY AND [facility] CORRECTLY. SHE WOULD HOWEVER REPEAT SOME WORDS OVER AND OVER AGAIN. SUCH WHEN ASKED WHAT HER YEAR WAS "1930, 1930, 1930" OVER AND OVER AGAIN. SHE DID THE SAME THING WITH HER LAST NAME AND VARIOUS OTHER WORDS. USING FACES PAIN SCALE. DIFFICULT TO ASSESS LOCATION OF PAIN GIVEN PTS LEVEL OF COMMUNICATION. SEE CHARTING. X2 DOSES OF PERCOCET GIVEN.
[2019-01-07 07:30] VITALS: BP 113/49
--- NOTE | 2019-01-07 10:48 | NUR ---
DISCHARGE PLANNING. PATIENT ADMITTED FROM [facility]. PLAN IS FOR PATIENT TO RETURN TO [facility] ONCE MEDICALLY READY FOR DISCHARGE. REFERRAL FAXED TO [facility] ADMISSIONS. CALL PLACED TO [facility]. ACCEPTING OF PATIENT AT DISCHARGE. PATIENT WILL NEED TRANSPORTATION TO [facility] FROM [facility]. [facility] ACCEPTING OF WEEKEND DISCHARGE. PATIENT RECEIVES DIALYSIS FROM [facility], , [facility] PROVIDES TRANSPORTATION TO AND FROM DIALYSIS. FOLLOWING TO ASSIST WITH DISCHARGE NEEDS. UNIT CM/SW AWARE. [facility] CONTACT NUMBER [phone] FAX [phone]
[2019-01-07 11:41] VITALS: BP 144/52
[2019-01-07 16:48] VITALS: BP 112/41
--- NOTE | 2019-01-07 17:24 | NUR ---
JONATAN reviewed chart and spoke with nursing and attending physician. Patient was transferred from ICU to . Patient is a resident of [facility] and [place], [place]. digital sales planner faxed clinical updates to the facility, who states they are able to except him back when she is medically stable. JONATAN met with pt and spouse at bedside. Introduced role of SW. Pt was sleeping soundly. Pt s spouse confirms plan is for pt to return to [facility] when medically stable. The nursing facility provides transportation to and from dialysis at [facility]. JONATAN also spoke with pt s dtr, Bridget, via phone to provide update. SW answered Bridget's questions. No weekend discharge anticipated. JONATAN is following to assist as needed with discharge planning.
--- NOTE | 2019-01-07 18:31 | NUR ---
ASSUMED PATIENT CARE AT 0700. ALERT TP SELF. NOT FOLLOW COMMAND. NOT ANSWER QUEESTION. TOLERATED HD TODAY. NO BLEEDING NOTED. VSS. SLOWLY TOWARDS POC GOALS.
[2019-01-07 20:02] VITALS: BP 120/47
[2019-01-08 04:38] VITALS: BP 120/48
--- NOTE | 2019-01-08 06:42 | NUR ---
PT MAKING POOR PROGRESS TOWARDS GOALS. PT FREQUENTLY REPEATING WORDS. PT HAS PREDOMINATELY SAID "NO NO NO" OVER AND OVER AGAIN. PT FREQUENTLY WILL DO THIS WHEN ATTEMPTING TO SPEAK WITH HER. DOES TURN HER HEAD TO WHOMEVER STATES HER NAME BUT HAS NOT BEEN ABLE TO VERBALIZE HER NAME, LOCATION, AGE OR EVEN IF SHE HAS ANY NEEDS. NO BM OVERNIGHT, HAS BEEN PASSING GAS. SOFT WRIST RESTRAINTS PLACED BL. PT HAD MITTENS ON BOTH HAND BUT EASILY COULD REMOVE THEM BY PULLLING BOTH OFF WITH HER TEETH. PT WOULD THEN START PULLING AT DEVICES ESPECIALLY HER RIGHT IJ TLC. UNABLE TO COMPLY WITH DIRECTIONS.
[2019-01-08 07:38] VITALS: BP 125/53
[2019-01-08 11:31] VITALS: BP 101/53
[2019-01-08 16:26] VITALS: BP 119/49
--- NOTE | 2019-01-08 18:06 | NUR ---
PT SAT IN CHAIR FROM 1200 TIL 1700...SHE WAS ALMOST A LIFT SINCE SHE DOES NOT FOLLOW COMMANDS AND CAN NOT BEAR WEIGHT TO LT HIP...WILL MONITOR..
[2019-01-08 19:42] VITALS: BP 112/3; BP 112/34
[2019-01-08 20:16] LABS: HEMATOCRIT 22.8 % (37.0-47.0); MCHC 33.6 g/dL (28.0-37.0); RBC 2.39 mil/uL (4.20-5.00); WBC 15.6 thou/uL (4.0-11.0)
[2019-01-08 20:20] LABS: HEMOGLOBIN 7.6 gm/dL (12.0-15.0); MCV 95.3 fL (80.0-100.0); RDW 18.3 % (10.5-14.5)
[2019-01-08 20:26] LABS: PLATELET COUNT 60 thou/uL (150-400)
[2019-01-08 20:42] LABS: ALBUMIN 2.4 g/dL (3.4-5.0); CALCIUM 8.5 mg/dL (8.5-10.1); CREATININE 2.7 mg/dL (0.6-1.0); POTASSIUM 3.9 mmol/L (3.5-5.1); TOTAL BILIRUBIN 1.1 mg/dL (<0.1-1.0); TOTAL PROTEIN 5.4 g/dL (6.4-8.2)
[2019-01-08 21:06] LABS: INR 1.8; PROTIME 18.8 Seconds (9.3-11.4)
[2019-01-08 21:11] LABS: ABSOLUTE NEUTROPHILS 11.4 thou/uL (1.4-8.2); ANISOCYTOSIS 2+
[2019-01-08 21:12] LABS: LARGE PLATELETS OCCASIONAL; PLATELET ESTIMATE DECREASED; POLYCHROMASIA 1+
[2019-01-09 03:52] VITALS: BP 97/38
[2019-01-09 06:17] LABS: HEMATOCRIT 21.5 % (37.0-47.0); HEMOGLOBIN 7.2 gm/dL (12.0-15.0); MCH 31.9 pg (26.0-34.0); MCHC 33.3 g/dL (28.0-37.0); MCV 95.9 fL (80.0-100.0); PLATELET COUNT 64 thou/uL (150-400); RBC 2.25 mil/uL (4.20-5.00); RDW 18.3 % (10.5-14.5); WBC 13.8 thou/uL (4.0-11.0)
[2019-01-09 06:31] LABS: INR 1.5; PROTIME 15.9 Seconds (9.3-11.4)
[2019-01-09 06:32] LABS: CREATININE 3.1 mg/dL (0.6-1.0); TOTAL BILIRUBIN 0.8 mg/dL (<0.1-1.0); TOTAL PROTEIN 5.1 g/dL (6.4-8.2)
--- NOTE | 2019-01-09 07:18 | NUR ---
PT MAKING SLOW PROGRESS TOWARDS GOALS. PT ABLE TO STATE HER FIRST AND LAST NAME ACCURATELY. DID NOT ANSWER ANY FURTHER QUESTIONS. CONTINUES TO SAME SOME WORDS REPETITIVELY THROUGHOUT THE NIGHT. NO RESTRAINTS OVERNIGHT. ONLY REDIRECTED FROM PICKING AT HER CENTRAL LINE DRESSING X2.
[2019-01-09 07:31] LABS: ABSOLUTE NEUTROPHILS 9.2 thou/uL (1.4-8.2)
[2019-01-09 07:32] LABS: ANISOCYTOSIS 2+; LARGE PLATELETS SEVERAL
[2019-01-09 08:21] VITALS: BP 111/38
[2019-01-09 12:12] VITALS: BP 124/43
--- NOTE | 2019-01-09 14:27 | NUR ---
PT HAS PLANS FOR DIALYSIS THURSDAY PER DR PINEDA...PROCRIT GIVEN SC TODAY..ENCOURAGE MEALS...
[2019-01-09 16:00] VITALS: BP 98/34
[2019-01-09 20:35] VITALS: BP 130/46
[2019-01-10 03:54] VITALS: BP 124/56
--- NOTE | 2019-01-10 06:33 | NUR ---
ASSUMED CARE OF PT AT 1900. AWAKE ALL NOC, RESTLESS. PT REMOVED TELE PATCHES OVER 10x's, REPLACED. PT PULLED OUT HER CENTRAL LINE. CONTACTED DAUGHTER AND TERRITORY ACCOUNT EXECUTIVE, PT PLACED IN SOFT BILAT WRIST RESTRAINTS TO KEEP PT SAFE. PT STILL WIGGLED DOWN IN BED WITH RESTRAINTS ON UNTIL SHE COULD REMOVE PATCHES AGAIN, REPLACED. TURNED Q 2 HOURS. NO ACUTE RESP OR CARDIAC DISTRESS. SLOW PROGRESSION TOWARDS OC GOALS.
[2019-01-10 07:49] VITALS: BP 123/53
[2019-01-10 09:50] LABS: HEMATOCRIT 23.6 % (37.0-47.0); MCH 32.6 pg (26.0-34.0); MCHC 33.7 g/dL (28.0-37.0); MCV 96.5 fL (80.0-100.0); RBC 2.44 mil/uL (4.20-5.00); RDW 18.3 % (10.5-14.5); WBC 14.1 thou/uL (4.0-11.0)
--- NOTE | 2019-01-10 18:38 | NUR ---
PT HAD DIALYSIS TODAY AND THEY REMOVED 500 ML...TOLERATED WELL PER DIALYSIS NURSE..
[2019-01-10 20:30] VITALS: BP 128/55
--- NOTE | 2019-01-11 04:40 | NUR ---
PT IN BED AWAKE. PT HAS NOT SLEPT NEARLY AT ALL. PT REMAINS CONFUSED AND ONLY ORIENTED TO SELF. PT CONTINUES ON RA. AFIB ON MONITOR. PT HAS BEEN NPO SINCE MIDNIGHT FOR SCAN THIS MORNING.
[2019-01-11 05:15] VITALS: BP 139/63
[2019-01-11 07:39] VITALS: BP 140/48
--- NOTE | 2019-01-11 08:12 | NUR ---
This nursing unit coordinator (Jennifer Leslie RN-BSN) completed 60mls blood draw using left upper arm fistula. Fistula accessed with 16g needle x2. First attempt to access fistula did not result in sucessful access of fistula. Needle withdrawn and hemostasis achieved. 2nd attempt sucessfull and 60mls of blood withdrawn for laborer salvage. Post draw dialysis line flushed with 10mls sodium chloride 0.9% flush, needle discontinued and hemostasis achieved. PT tolerated intevention well without complications.
[2019-01-11 11:47] VITALS: BP 110/48
--- NOTE | 2019-01-11 11:49 | NUR ---
Nutrition: REC consider diet liberalization in attempts to improve oral intake.
--- NOTE | 2019-01-11 14:04 | NUR ---
JONATAN reviewed chart and spoke with nursing and attending physician. Pt to have indium scan today. Pt remains on IV abx. JONATAN spoke with Blank in admissions at [facility] to provide update. Updated clinical info to be sent to the facility tomorrow for review. [facility] is able to accept pt when she is medically stable for discharge. JONATAN is following to assist as needed with discharge planning.
--- NOTE | 2019-01-11 18:05 | NUR ---
PT CONTINUES TO BE CONFUSED..ORIENTED TO NAME ONLY..MORE AWAKE TODAY...
[2019-01-11 20:00] VITALS: BP 136/58
[2019-01-12 01:01] VITALS: BP 136/40
[2019-01-12 05:00] VITALS: BP 142/41
--- NOTE | 2019-01-12 05:49 | NUR ---
PT REMAINS VERY DROWSY STILL. PT WILL WAKE TO NAME AND TACTILE STIMULATION. PT AFIB/SR ON MONITOR. PT LOW GRADE TEMP 99.8. PT TO HAVE F/U PICS TO SCAN YESTERDAY.
[2019-01-12 07:16] VITALS: BP 133/43
--- NOTE | 2019-01-12 07:46 | HC ---
[facility] [place] [address] CONSULTATION Name: RAHEEL DAIGLE Kenya Room #: 363-P ADM IN ..#: [id number] Admission: 01/01/19 ������������������ Attend Phys: Marcelo Erazo MD Discharge: ������������������ Date of : [birth year] Report #: [id number] THIS REPORT FOR: //name// CC: [facility] physician/PCP Marcelo VERAS HISTORY OF PRESENT ILLNESS: The patient is an 88-year-old woman with end-stage renal disease and remote #21 Sam bovine pericardial aortic valve replacement for severe aortic stenosis. At the time of her valve replacement, she underwent single vessel bypass with a left internal mammary to the LAD (2011). She has known severe prosthetic valve stenosis, which has remained clinically asymptomatic; her ejection fraction is normal. She now presents with fevers, chills and confusion. She recently underwent left hip revision and was transferred from her Nursing Center to the hospital due to full-blown sepsis with leukocytosis, positive blood cultures and lactic acidosis. I have been asked to see her in light of her valvular heart disease. She denies chest heaviness, pressure or ischemic-type symptoms. She remains encephalopathic and repeats the sentence "am I all right" for most questions that are asked of her. No history of near syncope or syncope. No orthopnea, paroxysmal nocturnal dyspnea or lower extremity edema. PAST MEDICAL HISTORY: Medical records have been reviewed and include an aortic valve replacement in 2012 and WISE to the LAD placement; end-stage renal disease, on hemodialysis; right lower lobectomy for calcific benign mass; sigmoidectomy; tonsillectomy; left hip arthroplasty in 2018 with revision; dyslipidemia; hypertension; anemia and arthritis. ALLERGIES: CAPTOPRIL AND ALLOPURINOL. MEDICATIONS: Her medicines include Sensipar, folic acid, diltiazem CD 240 mg daily, gabapentin, hydrocodone, Claritin and MiraLax. SOCIAL HISTORY: She is a nonsmoker, . FAMILY HISTORY: Notable for hypertension. REVIEW OF SYSTEMS: All systems negative, except as that noted above, not thought to be entirely reliable. PHYSICAL EXAMINATION: GENERAL: Exam reveals a frail elderly woman, in no distress. VITAL SIGNS: Blood pressure is 105/40, heart rate is 67 and regular. She is afebrile, 5 feet 4 inches tall, 123 pounds. HEENT: There are neither xanthelasma, subcutaneous xanthomata, oral mucosal or digital cyanosis or kyphoscoliosis present. [address] [address] CONSULTATION Name: RAHEEL DAIGLE Room #: 363-P [facility] IN ..#: [id number] Admission: 01/01/19 ������������������ Attend Phys: Marcelo Erazo MD Discharge: ������������������ Date of : [birth year] Report #: [id number] CHEST: Clear to auscultation and percussion. CARDIAC EXAMINATION: Regular rate and rhythm with a harsh systolic ejection murmur at the base. ABDOMEN: Soft and nontender. EXTREMITIES: Without cyanosis, clubbing or edema. Radial pulses are 2+. NEUROLOGIC: She is alert, oriented with a nonfocal exam. LABORATORY DATA: Sodium 129, potassium 4.3 and creatinine 4.6. AST 2336. Glucose 123. White count 15.5, hemoglobin 7.2 and platelet count 26,000; platelet count in 11/[address] was [address] CT of the abdomen demonstrates sigmoid colitis and a large bone cyst. Chest x-ray, mild bibasilar atelectasis. EKG, sinus rhythm with right bundle branch block. IMPRESSION: 1. Severe sepsis. 2. End-stage renal disease, on hemodialysis. 3. Bioprosthetic aortic valve stenosis, severe. 4. Recent left hip surgery. 5. Metabolic encephalopathy. 6. Coronary artery disease with prior single vessel bypass. RECOMMENDATIONS: 1. Echocardiogram with Doppler. 2. Supportive care. Multiple potential sites of infection are present. Hopefully, this does not represent endocarditis. She would be a poor surgical candidate for aortic valve intervention. ��������������������������������������������� <ELECTRONICALLY SIGNED> ���������������������������������������� By: Yogi Arevalo MD, [facility] ��������������������������������������������� 01/12/19 0746 0727 1311 Yogi Arevalo MD, FACC /nt
--- NOTE | 2019-01-12 10:26 | NUR ---
automatic data processing planner faxed updates on patient to [facility] fax [phone]. Contact by phone [phone] Blank. Discharge date is unknown.
[2019-01-12 11:06] VITALS: BP 125/50
--- NOTE | 2019-01-12 15:29 | NUR ---
SW reviewed chart and spoke with nursing and attending physician. Pt currently off the unit having scan and then will go to dialysis. corporate event planner faxed updates to [facility]. Discharge plan is for pt to return to [facility] when medically stable. JONATAN is following to assist as needed with discharge planning.
--- NOTE | 2019-01-12 18:32 | NUR ---
PT ALERT TO SELF ONLY. VERY DROWSY FOR THE MOST PART OF THE SHIFT. VSS, 100%RA. PT HAS POOR APPETITE THIS SHIFT. PT WORKED FAIR WITH PT/OT TODAY. PT SON AND DAUGHTER AT BEDSIDE. PT IN DIALYSIS NOW. PT SLOWLY PROGRESSING TOWRADS POC GOALS.
[2019-01-12 19:56] VITALS: BP 135/70
[2019-01-13 03:36] VITALS: BP 135/55
--- NOTE | 2019-01-13 05:24 | NUR ---
PT RETURNED FROM DIALYSIS AT APPROX 2000. VSS WHEN PT RETURNED. DIALYSIS NURSE REPORTED THAT 2L WERE REMOVED. PT STILL REFUSING TO EAT OR DRINK. ALL MEDICATIONS ARE CRUSHED IN PUDDING/APPLESAUCE AND IT IS DIFFICULT TO GET PT TO EAT THIS. Q2 TURNS AND HOURLY ROUNDING. FAMILY TAKES ACTIVE ROLE IN PT'S HEALTHCARE. PT ONLY A/O TO SELF, HAS RESTLESS SLEEP, AND PICKS AT TELE LEADS. LORAZEPAM DECREASED PER POC.
[2019-01-13 05:53] LABS: HEMATOCRIT 24.8 % (37.0-47.0); HEMOGLOBIN 8.7 gm/dL (12.0-15.0); MCH 34.8 pg (26.0-34.0); MCHC 35.1 g/dL (28.0-37.0); MCV 99.3 fL (80.0-100.0); PLATELET COUNT 58 thou/uL (150-400); RBC 2.49 mil/uL (4.20-5.00); RDW 25.8 % (10.5-14.5); WBC 12.5 thou/uL (4.0-11.0)
[2019-01-13 06:06] LABS: CALCIUM 8.6 mg/dL (8.5-10.1); CREATININE 2.1 mg/dL (0.6-1.0); POTASSIUM 3.9 mmol/L (3.5-5.1)
[2019-01-13 07:11] VITALS: BP 144/50
[2019-01-13 07:30] LABS: ABSOLUTE NEUTROPHILS 9.4 thou/uL (1.4-8.2); ANISOCYTOSIS 3+; PLATELET ESTIMATE DECREASED; POLYCHROMASIA 1+
[2019-01-13] MEDS ORDERED: TRAMADOL 50 MG50 MG PO (09:25)
[2019-01-13] MEDS ORDERED: CEFTRIAXON1 GM/50 M1 IVPB (09:25)
--- NOTE | 2019-01-13 11:24 | NUR ---
patient will dc today to [facility] via [facility] ambulance.
[2019-01-13 11:31] VITALS: BP 139/50
--- NOTE | 2019-01-13 12:24 | NUR ---
CONSULTED FOR MIDLINE PLACEMENT. THIS PATIENT IS NOT A CANIDATE FOR A MIDLINE DUE TO HER ESRD. SHE HAS PULLED OUT MULTIPLE CENTRAL LINES AND PERIPHERAL PIV LINES. PER ID PROGRESS NOTE THE DOSING FOR OUTPATIENT ANTIBIOTICS WERE CHANGED TO POST DIALYSIS DOSING.
--- NOTE | 2019-01-13 14:10 | NUR ---
JONATAN reviewed chart and spoke with nursing and attending physician. Discharge orders written for pt to go back to [facility] and resume outpatient dialysis at [facility]. Pt will need IV abx after dialysis. JONATAN contacted by pt's nurse who states LTAC placement was discussed with pt by ID physician. Nursing contacted attending physician, who states pt is stable to d/c back to her SNF today. JONATAN met with pt, spouse and their son at bedside to discuss discharge plan. Pt's son states they are wanting to appeal the discharge, and would like to have [facility] come to evaluate pt. They do not feel that pt is medically stable for discharge yet. JONATAN explained LTAC admission criteria, and that pt would need to be evaluated by the [facility] liaison. SW provided LTAC options. Pt's son and spouse verbalized understanding. JONATAN further explained that if pt does not meet LTAC criteria, there are two SNFs in [place] area that provide onsite dialysis: [facility] and [facility] [place] [facility]. Pt's son states that he has reviewed the Medicare ratings for both of the SNFs. JONATAN explained that not many SNFs have onsite dialysis. Lengthy discussion with pt's family regarding eventual discharge plan back to [facility]. [facility] is the closest dialysis clinic to where pt and spouse live. JONATAN updated attending physician, Director of Case Mgmt and UR RN of the appeal. Pt's son states he will contact [facility] to start the appeal process. JONATAN contacted [facility] liaison, who will be onsite to evaluate pt later today. JONATAN notified dance teacher to cancel all discharge arrangements for today. JONATAN is following to assist as needed with discharge planning.
[2019-01-13 15:03] VITALS: BP 135/42
--- NOTE | 2019-01-13 18:41 | NUR ---
PATIENT RESTED IN BED THROUGH THE DAY. SHE REFUSED THERAPY TODAY. STATES SHE DOES NOT WANT. SHE WAS ENCOURAGED TO EAT BUT SHE REFUSED. WAS BEING DISCHARGE TODAY TO [facility] BUT SON WHO IS DPOA APPEALED STATING HE WANTED HER TO STAY LONGER IN THE HOSPITAL AND GET WELL. TURNED Q2. WILL CONT WITH PLNA OF CARE.
[2019-01-13 20:48] VITALS: BP 120/39
[2019-01-13 22:05] VITALS: BP 118/52
[2019-01-14 05:10] VITALS: BP 144/58
--- NOTE | 2019-01-14 05:12 | NUR ---
ASSUMED PT CARE AROUND 1900. CONFUSED, ORIENTED TO PERSON ONLY. PT RESTLESS THROUGHOUT THE NIGHT. C/O BACK PAIN. PAIN MEDICATION GIVEN WITH MINIMAL RELIEF. REPOSITIONED FREQUENTLY FOR COMFORT AND TO PREVENT SKIN BREAKDOWN. PT WAS INCONTINENT OF STOOL DURING THE NIGHT. VSS. PT FREQUENTLY PULLS AT LINES, TUBING, TAKES OFF O2 TUBING. REORIENTATION PROVIDED. FREQUNENT MONITORING. PT WAS DROWSY BUT DID NOT SLEEP MOST OF THE NIGHT. FALL PRECAUTIONS IN PLACE. NOT PROGRESSING WELL TOWARD POC GOALS. WILL CONTINUE TO MONITOR FURTHER.
--- NOTE | 2019-01-14 11:50 | NUR ---
JONATAN reviewed chart and spoke with nursing and attending physician. JONATAN notified by [facility] liaison that they are able to accept pt today. JONATAN spoke with pt's son, Rivas, via phone ([phone]) to provide update and discuss Medicare appeal. Pt's son states that family is touring [facility] at 1130 and will decide if that is where they want to go. Pt's son wants to continue with appeal process. JONATAN looked at pt's chart. JONATAN met with pt at bedside. Pt receiving dialysis on 4E. Pt's spouse signed IM letter. Clinical info printed by JONATAN and UR [employer] tech [facility]. Awaiting input from family at this time. JONATAN is following to assist as needed with discharge planning.
[2019-01-14 16:03] VITALS: BP 125/46
[2019-01-15 03:53] VITALS: BP 133/44
--- NOTE | 2019-01-15 07:35 | NUR ---
PATIENT IS ALERT TO SELF. PATIENT IS Q2TURN. PATIENT IS ON 2L NC. PATIENT WAS BATH AND BED CHANGED. ORDER FOR NOT IV. PATIENT GET ANTIBIOTICS WITH DIALYSIS. PATIENT HAS LT AV FISTULA. PATIENT IS ANURIC. PATIENT LBM TODAY. PATIENT IS INCONTIENT. PATIENT IS A FEEDER. PO INTACT ENCOURAGED BY NURSE. PAITENT IS PENDING DISCHARGE TODAY. WCM. PATIENT IS A FIB ON TELE.
[2019-01-15 08:39] VITALS: BP 142/54
--- NOTE | 2019-01-15 09:53 | NUR ---
PT DRESSED AND REPORT CALLED TO [facility] TO [facility]...CHART COPIED..SPOUSE AND CHILDREN WITH PATIENT..
== END 2019-01-15 10:11 | DRG 871 ==
LOC: ER 11:57 → ICU 15:03 → EROBS 15:03 → ICU 16:33 → ENTRNSPT 01-05 16:48 → 3W 01-05 17:32
PROVIDERS: Emergency Medicine; Hospitalist; Internal Medicine; Internal Medicine Hematology & Oncology; Internal Medicine Pulmonary Disease; Specialist; ADMIT Hospitalist
PROC: 02HV33Z Insertion of Infusion Device into Superior Vena Cava, Percutaneous Approach (ICD-10-PCS; principal; 2019-01-01)
PROC: 30233N1 Transfusion of Nonautologous Red Blood Cells into Peripheral Vein, Percutaneous Approach (ICD-10-PCS; 2019-01-02)
PROC: 5A1D70Z Performance of Urinary Filtration, Intermittent, Less than 6 Hours Per Day (ICD-10-PCS; 2019-01-03)
PROC: 30233R1 Transfusion of Nonautologous Platelets into Peripheral Vein, Percutaneous Approach (ICD-10-PCS; 2019-01-05)
PROC: 5A1D70Z Performance of Urinary Filtration, Intermittent, Less than 6 Hours Per Day (ICD-10-PCS; 2019-01-05)
PROC: 5A1D70Z Performance of Urinary Filtration, Intermittent, Less than 6 Hours Per Day (ICD-10-PCS; 2019-01-07)
PROC: 5A1D70Z Performance of Urinary Filtration, Intermittent, Less than 6 Hours Per Day (ICD-10-PCS; 2019-01-10)
PROC: 5A1D70Z Performance of Urinary Filtration, Intermittent, Less than 6 Hours Per Day (ICD-10-PCS; 2019-01-12)
PROC: 5A1D70Z Performance of Urinary Filtration, Intermittent, Less than 6 Hours Per Day (ICD-10-PCS; 2019-01-14)
DX: A40.1 Sepsis due to streptococcus, group B (principal); G93.41 Metabolic encephalopathy; J18.1 Lobar pneumonia, unspecified organism; N18.6 End stage renal disease; E43 Unspecified severe protein-calorie malnutrition; R65.21 Severe sepsis with septic shock; K72.00 Acute and subacute hepatic failure without coma; E87.2 Acidosis; I12.0 Hypertensive chronic kidney disease with stage 5 chronic kidney disease or end stage renal disease; Q61.3 Polycystic kidney, unspecified; M19.90 Unspecified osteoarthritis, unspecified site; Z96.642 Presence of left artificial hip joint; G62.9 Polyneuropathy, unspecified; E21.3 Hyperparathyroidism, unspecified; D69.6 Thrombocytopenia, unspecified; I25.10 Atherosclerotic heart disease of native coronary artery without angina pectoris; G89.29 Other chronic pain; M54.9 Dorsalgia, unspecified; D63.8 Anemia in other chronic diseases classified elsewhere; M62.84 Sarcopenia; Y95 Nosocomial condition; E16.2 Hypoglycemia, unspecified; Z88.8 Allergy status to other drugs, medicaments and biological substances; Z79.899 Other long term (current) drug therapy; Z95.2 Presence of prosthetic heart valve; Z98.49 Cataract extraction status, unspecified eye; Z68.21 Body mass index [BMI] 21.0-21.9, adult; Z99.2 Dependence on renal dialysis; Z82.49 Family history of ischemic heart disease and other diseases of the circulatory system; Z95.1 Presence of aortocoronary bypass graft
CPT/HCPCS: 10078; 10879; 32100

== ENCOUNTER → 2019-11-29 | Outpatient (CLI) | payer OTHER, MEDICARE ==
[~2019-11-29] MED LIST changes: +ACIDOPHILUS1 EAC4 PO; +CEFTRIAXON1 GM/50 M1 IVPB; +PERCOCET PO; +RENAL-VITE TAB0.8 MG PO; +TRAMADOL 50 MG50 MG PO
== END ==
LOC: SJCVC 10:41
DX: I45.10 Unspecified right bundle-branch block (principal); I48.91 Unspecified atrial fibrillation; R94.31 Abnormal electrocardiogram [ECG] [EKG]; I25.10 Atherosclerotic heart disease of native coronary artery without angina pectoris; I12.0 Hypertensive chronic kidney disease with stage 5 chronic kidney disease or end stage renal disease; N18.6 End stage renal disease; M19.90 Unspecified osteoarthritis, unspecified site; E78.00 Pure hypercholesterolemia, unspecified; G47.30 Sleep apnea, unspecified; Z99.2 Dependence on renal dialysis; Z95.3 Presence of xenogenic heart valve; Z79.899 Other long term (current) drug therapy